=== PATIENT | female | born 1930 | race Caucasian/White ===

== ENCOUNTER → 2017-02-09 | Outpatient (CLI) | payer OTHER, MEDICARE ==
[~2017-02-09] MED LIST: ADULT LOW DOSE81 MG PO; ADVAIR HFA 1112 UNIT INH; ALBUTEROL2.5 MG/0.5 INH; BENICAR HCT 401 EACH PO; CENTRUM SILVER1 EAC4 PO; CITRACAL + BON1 EACH PO; CITRACAL + D C1 EACH PO; DILTIAZEM 24HR120 M1 PO; DILTIAZEM 24HR240 MG PO; DOCUSATE SODIU100 MG PO; EVISTA PO; FISH OIL SOFTG1 EACH PO; GLYCOLAX POWDER17 G1 PO; K-PHOS NEUTRAL250 MG PO; LEVAQUIN 500 M500 M2 PO; MUCINEX D TABL1 EAC1 PO; MULTIVITAMINS PO; NEBULIZER MISCELL; OMEGA-31000 MG PO; PREDNISONE 10 M10 MG PO; PROAIR HFA8.5 GM INH; SENNA-LAX8.6 MG PO; SPIRIVA INH; SYMBICORT160 MCG/4. INH; TEKTURNA300 MG PO; TORSEMIDE10 MG PO; TRAVATAN 0.004%5 ML OPHTHALMIC; VITAMIN B-12100 MC1 PO; VITAMIN D1000 UNI1 PO; VITAMIN D400 UNI1 PO
== END ==
LOC: RAD 10:45
DX: R06.02 Shortness of breath (principal)

== ENCOUNTER → 2017-07-08 | Outpatient (CLI) | payer OTHER, MEDICARE | LOC: RAD 10:45 | DX: Z12.31 Encounter for screening mammogram for malignant neoplasm of breast (principal) ==

== ENCOUNTER 2018-01-07 13:49 | Inpatient (IN) | payer OTHER, MEDICARE ==
[~2018-01-07] VITALS: Ht 152.4 cm; Wt 66.2 kg
--- NOTE | ~2018-01-07 | EKG ---
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 : 1930 Requested By: Orion Guzman Order Number: [id number] MD: Jah Jorgensen Measurements Intervals [place] Rate: 101 P: 41 LA: 157 QRS: 8 QRSD: 90 T: 6 QT: 303 QTc: 393 Interpretive Statements Sinus tachycardia Atrial premature complexe Compared to ECG 06/05/2016 22:20:22 Atrial premature complex(es) now present Sinus rhythm no longer present Electronically Signed On 01-08-2018 10:28:42 CDT by Jah Jorgensen [email or web address] <ELECTRONICALLY SIGNED> By: Jah Jorgensen MD 01/08/18 1028 1440 1440 Jah Jorgensen MD /LUISITO
--- NOTE | ~2018-01-07 | EKG ---
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 : 1930 Requested By: Andrae Herbert Order Number: [id number] MD: Lg Haines Measurements Intervals [place] Rate: 114 P: [place]: QRS: -21 QRSD: 86 T: -30 QT: 306 QTc: 422 Interpretive Statements Incomplete tracing Atrial fibrillation Borderline left axis deviation Low voltage, extremity leads Lead(s) II were not used for morphology analysis Compared to ECG 01/07/2018 14:40:44 Low QRS voltage now present Sinus tachycardia no longer present Electronically Signed On 01-11-2018 9:38:49 CDT by Lg Haines [email or web address] <ELECTRONICALLY SIGNED> By: Lg Haines MD, [facility] 01/11/18 0938 5 Lg Haines MD, [facility] /EPI
--- NOTE | ~2018-01-07 | EKG ---
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 01/11/18 0957 0755 0755 Lg aHines MD, [facility] /EPI
--- NOTE | ~2018-01-07 | HC ---
[facility] [place] [address] CONSULTATION Name: LUIS CELESTE Room #: [facility]- ADM IN M.R.#: [id number] Admission: 01/07/18 Attend Phys: Andrae Herbert MD Discharge: Date of : 32 Report #: [id number] THIS REPORT FOR: //name// CC: Jah Andrea MD DATE OF SERVICE: 01/10/2018 REFERRING PROVIDER: Andrae Herbert MD REASON FOR CONSULTATION: Wheezing and shortness of breath. HISTORY OF PRESENT ILLNESS: Our group was asked to evaluate the patient in consultation while hospitalized at [facility], a pleasant 87-year-old woman with a past history of COPD, although never a smoker, more of an asthmatic component, is to be on Stiolto inhaler with some reasonable control of symptoms, has done well in the last 4 months since her last office evaluation with no significant exacerbations; actually presented with nausea and abdominal discomfort, was found to have pyelonephritis with E. coli bacteremia, has been on Rocephin for this. However, after the last couple of days, has had increasing shortness of breath and wheezing, was noted to have some atrial fibrillation earlier today and is subsequently on diltiazem for control, also has been receiving aerosol treatments. She denies any significant cough or sputum production. As mentioned, wheezing and increased exertional dyspnea. Of note, the patient received several liters of fluid as part of her management. PAST MEDICAL HISTORY: 1. Chronic renal insufficiency. 2. COPD, most recent exacerbation in 2016. 3. Glaucoma. 4. Hypertension. OUTPATIENT MEDICATIONS: Include aspirin, vitamin D3, diltiazem, multivitamin, Stiolto, Travatan eyedrops, ProAir, aspirin. SOCIAL HISTORY: The patient is a never smoker. No significant alcohol consumption. Has one dog, no other animals at home. 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 FAMILY HISTORY: Noncontributory due to her advanced age. ALLERGIES: INCLUDE SULFA. REVIEW OF SYSTEMS: [facility] [address] [place] [address] CONSULTATION Name: LUIS CELESTE Room #: 360-P [facility] IN M.R.#: [id number] Admission: 01/07/18 Attend Phys: Andrae Herbert MD Discharge: Date of : 32 Report #: [id number] CONSTITUTIONAL: No fevers, some chills. ENT: No upper respiratory congestion, rhinorrhea or dysphagia. CARDIOVASCULAR: No chest pain or palpitations. GASTROINTESTINAL: History of large hiatal hernia. GENITOURINARY: No dysuria, no frequency. INTEGUMENT: Denies any new rash. MUSCULOSKELETAL: No joint pains or swelling. GENITOURINARY: Increased urinary frequency with recent UTI. PHYSICAL EXAMINATION: VITAL SIGNS: Currently afebrile, pulse 70s and regular, respiratory rate 20, blood pressure 146/89. GENERAL: Pleasant elderly woman in no distress. ENT: Clear oropharynx. NECK: Supple, no lymphadenopathy. LUNGS: Audible wheezes with some wheezing on exam. CARDIOVASCULAR: Heart regular. No murmurs appreciated. ABDOMEN: Soft, nontender, no masses. EXTREMITIES: 1+ edema. LABORATORY DATA: White blood cell count 7.5, hemoglobin 10, hematocrit 28, platelet count 248. No electrolytes today. No chest x-ray today. Chest x-ray on admission, 01/07, was clear with large hiatal hernia. IMPRESSION: 1. Chronic obstructive pulmonary disease with increasing symptoms, may be related to some mild pulmonary edema from large volume of fluid and atrial fibrillation or may be related to underlying severity of disease. 2. Atrial fibrillation. 3. Escherichia coli bacteremia. 4. Pyelonephritis. 5. History of hypertension. SUGGESTIONS: 1. Levalbuterol and Atrovent. 2. No systemic steroids at this time. 3. Check chest x-ray. 4. Consider diuresis. 5. Await echocardiogram. 6. Additional recommendations to follow. Thank you for requesting our suggestions. <ELECTRONICALLY SIGNED> By: Oscar Sarkar MD 01/11/18 1155 1803 14 Oscar Sarkar MD /nt
--- NOTE | ~2018-01-07 | HC ---
[facility] [place] [address] CONSULTATION Name: LUIS CELESTE Room #: 360- ADM IN M.R.#: [id number] Admission: 01/07/18 Attend Phys: Andrae Herbert MD Discharge: Date of : 32 Report #: [id number] THIS REPORT FOR: //name// CC: Andrae Herbert DATE OF SERVICE: 01/10/2018 HISTORY OF PRESENT ILLNESS: This is a pleasant 87-year-old female who was admitted several days ago with complaints of nausea, chills, and increased urine output. She was admitted for a pyelonephritis, cultures were positive for Gram-negative rods. She initially presented with sinus rhythm, but today she converted to atrial fibrillation. Appears to be asymptomatic. She does report having dyspnea for the past month or so, denies any history of chest pains. She does have a history of COPD. There is no history of lightheadedness, vomiting, or diarrhea. PAST MEDICAL HISTORY: COPD, pyelonephritis, hypertension, and anemia. ALLERGIES: Include SULFA. MEDICATIONS: At home include prednisone, aspirin 81 mg, diltiazem 240 mg daily, and Spiriva. SOCIAL HISTORY: Denies tobacco use. FAMILY HISTORY: Negative for premature CAD. REVIEW OF SYSTEMS: A full 10-point review of systems performed. Only the pertinent positives and negatives are described in the HPI. PHYSICAL EXAMINATION: VITAL SIGNS: Blood pressure is 149/62, heart rate is 110-150 beats per minute. GENERAL APPEARANCE: This is an elderly appearing female, in no acute respiratory distress. HEAD AND EYES: Normocephalic. Sclerae are anicteric. ENT: Oral mucosa moist. NECK: Supple. LUNGS: Bilateral expiratory wheezes. CARDIAC: Irregularly irregular, S1, S2 positive. ABDOMEN: Soft, nontender. EXTREMITIES: No major joint deformities. Trace edema. ECG reveals AFib with a rapid ventricular rate. ASSESSMENT AND PLAN: 1. Atrial fibrillation, new onset. May be contributing to her dyspnea. She is [facility] [address] [place] [address] [facility] #: [facility] IN M.R.#: [id number] Admission: 01/07/18 Attend Phys: Andrae Herbert MD Discharge: Date of : 32 Report #: [id number] currently on IV Cardizem for rate control. We will start amiodarone to maintain sinus rhythm. The CHADS score is 4; however, she has a history of anemia. Hold on anticoagulation at this time. 2. Dyspnea/history of chronic obstructive pulmonary disease, found to have expiratory wheezing. We will obtain a pulmonary evaluation. 3. Hypertension, mildly elevated, continue with IV Cardizem at this time. 4. Pyelonephritis, continue with antibiotics. 5. Anemia, hemoglobin is 8.7. Continue with aspirin for now. <ELECTRONICALLY SIGNED> By: Jah Jorgensen MD 01/11/18 0835 1342 1550 MD paul Olivia
--- NOTE | ~2018-01-07 | 2DMMODE ---
[facility] [address] [place] [address] 2 D/M-MODE ECHOCARDIOGRAM Name: LUIS CELESTE Room #: 360-P [facility] IN .R.#: [id number] Admission: 01/07/18 Attend Phys: Andrae Herbert, Discharge: Date of : 32 Date of Service: 01/10/18 1558 Report #: [id number] THIS REPORT FOR: //name// APPROVED REPORT Study performed: 01/10/2018 15:18:19 EXAM: Comprehensive 2D, Doppler, and color-flow Echocardiogram Patient Location: Echo lab Room #: 360 Status: routine BSA: 1.63 HR: 86 bpm BP: 149/62 mmHg Rhythm: NSR Other Information Study Quality: Good Indications Afib. Hx: COPD, HTN 2D Dimensions RVDd: 32.84 mm LVEF(%): 61.79 (>50%) IVSd: 9.88 (7-11mm) LVOT Diam: 19.57 (18-24mm) LVDd: 45.09 mm PWd: 10.23 (7-11mm) Ascending Ao: 25.82 (22-36mm) LVDs: 30.17 (25-40mm) Aortic Root: 31.51 mm Jc's LVEF: 61.79 % Volumes Left Atrial Volume (Systole) Single Plane 4CH: 63.27 mL Single Plane 2CH: 50.35 mL LA ESV Index: 39.00 mL/m2 Aortic Valve AoV Peak Jemal.: 1.53 m/s AO Peak Gr.: 9.34 mmHg LVOT Max P.76 mmHg LVOT Max V: 0.97 m/s LAZARA Vmax: 1.91 cm2 Mitral Valve E/A Ratio: 0.9 MV Decel. Time: 223.43 ms [facility] [place] [address] [place] [address] 2 D/M-MODE ECHOCARDIOGRAM Name: LUIS CELESTE Room #: [facility] IN M.R.#: [id number] Admission: 01/07/18 Attend Phys: Andrae Herbert, Discharge: Date of : 32 Date of Service: 01/10/18 1558 Report #: [id number] E Max Jemal.: 0.97 m/s MV A Jemal.: 1.04 m/s MV PHT: 64.80 ms IVRT: 83.04 ms Pulmonary Valve PV Peak Jemal.: 1.31 m/s PV Peak Gr.: 6.84 mmHg Pulmonary Vein P Vein S: 1.01 m/s P Vein D: 0.54 m/s P Vein S/D Ratio: 1.87 Tricuspid Valve TR Peak Jemal.: 3.01 m/s RAP Estimate: 5.00 mmHg TR Peak Gr.: 36.17 mmHg PA Pressure: 41.00 mmHg Left Ventricle The left ventricle is normal size. There is normal LV segmental wall motion. There is normal left ventricular wall thickness. Left ventricular systolic function is normal. LVEF is 55-60%. Mild diastolic dysfunction is present (impaired relaxation pattern). Right Ventricle The right ventricle is normal size. The right ventricular systolic function is normal. Atria Left atrium is mild to moderately dilated. The right atrium size is normal. Aortic Valve Aortic valve leaflets are mildly sclerotic No aortic regurgitation is present. There is no aortic valvular stenosis. Mitral Valve Mild-moderate mitral annular calcification. Moderate mitral regurgitation. No evidence of mitral valve stenosis. Tricuspid Valve The tricuspid valve is normal in structure. Mild tricuspid regurgitation. Estimated PAP is 40-45mmHg. Pulmonic Valve [address] [address] 2 D/M-MODE ECHOCARDIOGRAM Name: [place] Room #: 360-P [facility] IN M.R.#: [id number] Admission: 01/07/18 Attend Phys: Andrae Herbert, Discharge: Date of : 32 Date of Service: 01/10/18 1558 Report #: [id number] The pulmonary valve is normal in structure. Mild to moderate pulmonic regurgitation. Great Vessels The aortic root is normal in size. The ascending aorta is normal in size. IVC is normal in size and collapses >50% with inspiration. Pericardium Trace-small anterior pericardial effusion <Conclusion> Left ventricular systolic function is normal. There is normal LV segmental wall motion. LVEF is 55-60%. Mild diastolic dysfunction Left atrium is mild to moderately dilated. Aortic valve leaflets are mildly sclerotic. No aortic regurgitation or stenosis. Mild-moderate mitral annular calcification. Moderate mitral regurgitation. Mild tricuspid regurgitation. Estimated pulmonary artery pressure of 40-45mmHg. Trace-small anterior pericardial effusion <ELECTRONICALLY SIGNED> By: Lg Haines MD, [facility] 01/10/18 1558 1558 1558 Lg Haines MD, [facility]ACC /INF
[2018-01-07 13:58] VITALS: BP 157/81
[2018-01-07 14:28] LABS: HEMATOCRIT 32.2 % (37.0-47.0); MCH 30.9 pg (26.0-34.0); MCHC 34.2 g/dL (28.0-37.0); MCV 90.1 fL (80.0-100.0); PLATELET COUNT 238 thou/uL (150-400); RBC 3.57 mil/uL (4.20-5.00); RDW 14.7 % (10.5-14.5); WBC 10.6 thou/uL (4.0-11.0)
[2018-01-07 14:37] LABS: ANION GAP 9 mmol/L (7-16); BUN 30 mg/dL (7-18); CALCIUM 9.3 mg/dL (8.5-10.1); CHLORIDE 99 mmol/L (98-107); CO2 24 mmol/L (21-32); CREATININE 1.5 mg/dL (0.6-1.0); GLUCOSE 111 mg/dL (74-106); POTASSIUM 3.8 mmol/L (3.5-5.1); SODIUM 132 mmol/L (136-145)
[2018-01-07 14:45] LABS: ALBUMIN 2.9 g/dL (3.4-5.0); LIPASE 46 U/L (73-393); SGOT 29 U/L (15-37); SGPT 24 U/L (30-65); TOTAL BILIRUBIN 0.4 mg/dL (<0.1-1.0); TOTAL PROTEIN 7.1 g/dL (6.4-8.2); TROPONIN-I < 0.04 ng/mL (<0.06)
[2018-01-07 14:50] LABS: URINE BILIRUBIN NEGATIVE (Negative); URINE BLOOD 2+ (Negative); URINE CLARITY CLEAR; URINE COLOR YELLOW; URINE GLUCOSE-RANDOM* NEGATIVE (Negative); URINE KETONES TRACE (Negative); URINE LEUKOCYTES 1+ (Negative); URINE NITRITE POSITIVE (Negative); URINE PROTEIN (DIPSTICK) 2+ (Negative); URINE SPECIFIC GRAVITY 1.015 (1.005-1.035); URINE UROBILINOGEN 0.2 E.U./dl (0.2-1.0)
[2018-01-07 14:54] LABS: ABSOLUTE NEUTROPHILS 8.3 thou/uL (1.4-8.2)
[2018-01-07 15:10] LABS: CASTS None Seen /LPF (None Seen); CRYSTALS None Seen /LPF (None Seen); SQUAMOUS 0-3 Few /LPF (0-3); URINE RBC 0-2 Rare /HPF (0-2)
[2018-01-07 15:11] LABS: BACTERIA >30 Many /HPF (None Seen)
[2018-01-07 17:14] VITALS: BP 157/81
[2018-01-07 18:04] VITALS: BP 146/72
[2018-01-07 18:43] VITALS: BP 155/59
[2018-01-07 19:50] VITALS: BP 161/73
[2018-01-08 00:10] VITALS: BP 143/66
[2018-01-08 04:20] VITALS: BP 142/59
[2018-01-08 05:00] LABS: CALCIUM 8.5 mg/dL (8.5-10.1); CREATININE 1.3 mg/dL (0.6-1.0); POTASSIUM 3.6 mmol/L (3.5-5.1)
[2018-01-08 07:42] VITALS: BP 129/61
[2018-01-08 08:23] LABS: HEMATOCRIT 28.5 % (37.0-47.0); HEMOGLOBIN 9.8 gm/dL (12.0-15.0); MCH 31.4 pg (26.0-34.0); MCHC 34.4 g/dL (28.0-37.0); MCV 91.3 fL (80.0-100.0); RBC 3.12 mil/uL (4.20-5.00); RDW 14.7 % (10.5-14.5); WBC 9.8 thou/uL (4.0-11.0)
[2018-01-08 11:49] VITALS: BP 127/59
[2018-01-08 15:14] VITALS: BP 125/55
[2018-01-08 19:11] VITALS: BP 115/54
[2018-01-09 03:59] VITALS: BP 128/53
[2018-01-09 06:31] LABS: HEMOGLOBIN 8.7 gm/dL (12.0-15.0); MCH 31.3 pg (26.0-34.0); MCHC 34.7 g/dL (28.0-37.0); RBC 2.78 mil/uL (4.20-5.00); RDW 14.9 % (10.5-14.5); WBC 7.1 thou/uL (4.0-11.0)
[2018-01-09 07:21] VITALS: BP 135/56
[2018-01-09 09:17] LABS: CALCIUM 8.5 mg/dL (8.5-10.1); CREATININE 1.4 mg/dL (0.6-1.0); POTASSIUM 3.7 mmol/L (3.5-5.1)
[2018-01-09 11:16] VITALS: BP 123/81
[2018-01-09 15:35] VITALS: BP 132/66
[2018-01-09 19:27] VITALS: BP 138/72
[2018-01-10 03:43] VITALS: BP 149/62
[2018-01-10 05:46] LABS: HEMATOCRIT 28.1 % (37.0-47.0); HEMOGLOBIN 9.6 gm/dL (12.0-15.0); MCH 30.7 pg (26.0-34.0); MCV 90.3 fL (80.0-100.0); RBC 3.11 mil/uL (4.20-5.00); RDW 15.2 % (10.5-14.5); WBC 7.5 thou/uL (4.0-11.0)
[2018-01-10 19:40] VITALS: BP 165/81
[2018-01-11 05:07] LABS: HEMATOCRIT 26.7 % (37.0-47.0); MCH 30.7 pg (26.0-34.0); MCHC 33.7 g/dL (28.0-37.0); MCV 91.2 fL (80.0-100.0); RBC 2.93 mil/uL (4.20-5.00)
[2018-01-11 05:33] VITALS: BP 154/85
[2018-01-11 07:30] VITALS: BP 152/22
[2018-01-11 11:10] VITALS: BP 137/86
[2018-01-11 15:15] VITALS: BP 168/79
[2018-01-11 19:07] VITALS: BP 147/80
[2018-01-12 03:29] VITALS: BP 143/79
[2018-01-12 07:11] LABS: CALCIUM 9.1 mg/dL (8.5-10.1); CREATININE 1.1 mg/dL (0.6-1.0); POTASSIUM 3.1 mmol/L (3.5-5.1)
[2018-01-12 07:45] VITALS: BP 167/85
[2018-01-12] MEDS ORDERED: PACERONE 200 M200 M1 PO (12:51)
[2018-01-12] MEDS ORDERED: CEFDINIR300 MG PO (12:52)
[2018-01-12 13:11] VITALS: BP 167/85
== END 2018-01-12 13:40 | disposition home or self-care (01) | DRG 871 ==
LOC: ER 13:49 → EROBS 15:05 → 3W 15:05 → ENTRNSPT 01-12 13:20 → EDTRNSPTSTS 01-12 13:25 → 3W 01-12 13:40
PROVIDERS: Family Medicine; Internal Medicine; Internal Medicine Cardiovascular Disease; Physician Assistant
DX: A41.9 Sepsis, unspecified organism (principal); E43 Unspecified severe protein-calorie malnutrition; N17.9 Acute kidney failure, unspecified; N12 Tubulo-interstitial nephritis, not specified as acute or chronic; J44.9 Chronic obstructive pulmonary disease, unspecified; E86.0 Dehydration; I48.91 Unspecified atrial fibrillation; D64.9 Anemia, unspecified; B96.20 Unspecified Escherichia coli [E. coli] as the cause of diseases classified elsewhere; I12.9 Hypertensive chronic kidney disease with stage 1 through stage 4 chronic kidney disease, or unspecified chronic kidney disease; H40.9 Unspecified glaucoma; N18.3 Chronic kidney disease, stage 3 (moderate); E83.42 Hypomagnesemia; R65.20 Severe sepsis without septic shock; K44.9 Diaphragmatic hernia without obstruction or gangrene; Z88.2 Allergy status to sulfonamides; Z98.49 Cataract extraction status, unspecified eye; Z89.421 Acquired absence of other right toe(s); Z79.82 Long term (current) use of aspirin; Z79.899 Other long term (current) drug therapy
CPT/HCPCS: 10879

== ENCOUNTER → 2018-01-17 | Outpatient (CLI) | payer OTHER, MEDICARE ==
[~2018-01-17] MED LIST changes: +CEFDINIR300 MG PO; +PACERONE 200 M200 M1 PO
== END ==
LOC: ULTRA 10:12
DX: M79.605 Pain in left leg (principal); M79.89 Other specified soft tissue disorders; R22.41 Localized swelling, mass and lump, right lower limb; J44.9 Chronic obstructive pulmonary disease, unspecified

== ENCOUNTER → 2019-01-16 | Outpatient (CLI) | payer OTHER, MEDICARE | LOC: NUC 10:28 | DX: S92.345A Nondisplaced fracture of fourth metatarsal bone, left foot, initial encounter for closed fracture (principal); M85.851 Other specified disorders of bone density and structure, right thigh; M85.852 Other specified disorders of bone density and structure, left thigh; I11.9 Hypertensive heart disease without heart failure; I48.91 Unspecified atrial fibrillation; Z78.0 Asymptomatic menopausal state; X58.XXXA Exposure to other specified factors, initial encounter; Y93.89 Activity, other specified; Y92.89 Other specified places as the place of occurrence of the external cause; Y99.8 Other external cause status ==

== ENCOUNTER 2019-01-22 17:57 | Inpatient (IN) | payer OTHER, MEDICARE ==
[~2019-01-22] VITALS: Ht 152.4 cm; Wt 54.9 kg
--- NOTE | ~2019-01-22 | HC ---
[facility] [place] [address] CONSULTATION Name: LUIS CELESTE Room #: 450-P ADM IN M.R.#: [id number] Admission: 01/22/19 ������������������ Attend Phys: Andrae Herbert MD Discharge: ������������������ Date of : 32 Report #: [id number] THIS REPORT FOR: //name// CC: [facility] DATE OF SERVICE: 01/23/2019 ORTHOPEDIC CONSULTATION REASON FOR CONSULTATION: Right hip fracture. HISTORY OF PRESENT ILLNESS: The patient is an 88-year-old female who apparently was in some type of boot for a foot fracture. She tripped and fell yesterday sustaining a right hip fracture. She reportedly was transferred by ambulance to [facility], diagnosed with a hip fracture and admitted to the hospital. She denies any other pain. Denied loss of consciousness. REVIEW OF SYSTEMS: MUSCULOSKELETAL: See HPI. Denies other injury except for mentioned in the HPI. NEUROLOGIC: Denies numbness or tingling. PAST MEDICAL HISTORY: Significant for hypertension, COPD and atrial fibrillation. REPORTED HOME MEDICATIONS: Include amiodarone, cefdinir, albuterol, calcium citrate, cholecalciferol, tiotropium, travoprost, guaifenesin, diltiazem, fish oil, GlycoLax powder. ALLERGIES: SULFA. SOCIAL HISTORY: Lives at home with her , uses a cane intermittently. Denies smoking or drinking alcohol. 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 LABORATORY DATA: Done on 01/22/2019 shows white blood cell count 12.1, hemoglobin 11.2, hematocrit 32.8, platelet count 282. Chemistry is grossly normal with a slight elevation in her creatinine of 1.5. PHYSICAL EXAMINATION: GENERAL: The patient is alert and oriented. She interacts appropriately. She is a well-developed, well-nourished female, in no acute distress. She converses well. VITAL SIGNS: Most recent vital signs show temperature of 36.3, heart rate 71, [facility] [address] [place] [address] CONSULTATION Name: LUIS CELESTE Room #: [facility]- ADM IN M.R.#: [id number] Admission: 01/22/19 ������������������ Attend Phys: Andrae Herbert MD Discharge: ������������������ Date of : 32 Report #: [id number] respirations 17, blood pressure 151/68, pulse oximetry is 91%, unsure of the flow rate as it is not documented. EXTREMITIES: Examination of her bilateral upper extremities, the skin is clean, dry and intact. She has brisk capillary refill. She has some mild diffuse arthritic changes to her digits. Gross motor and sensory intact. She has no tenderness to palpation of the bilateral sternum and clavicles, shoulders, arms, elbows, forearms, wrists and hands. She moves all these joints without pain and within a functional range. Right lower extremity exam, the right lower extremity is internally rotated and shortened. She has 2+ dorsalis pedis pulse. EHL, FHL, dorsiflexion and plantar flexion are intact. There is no tenderness to palpation to the distal thigh, knee, leg, ankle or foot. There is no pain with range of motion of the right knee, ankle or foot. There is mild pain with attempted range of motion of the right hip. Left lower extremity exam: Skin is clean, dry and intact. Brisk capillary refill. Motor and sensory are grossly intact. 2+ dorsalis pedis pulse. No tenderness to palpation throughout the entire left lower extremity and no pain with range of motion of left hip, knee, ankle or foot. RADIOGRAPHS: AP pelvis and AP and lateral of the right hip show a displaced subcapital femoral neck fracture. IMPRESSION AND PLAN: Right displaced subcapital femoral neck fracture. We discussed the risks, benefits, alternatives and complications of the procedure including, but not limited to, infection, damage to vessels or nerves, hardware problems, decreased ambulatory level, blood clots. We discussed the rationale for the surgery, which would be to allow her to get out of bed to be upright to ambulate. Questions were encouraged and answered to the best of my ability. I have discussed this with my partner, Dr. Dat Johnson who most likely will be performing the surgery later this morning if the patient is medically stable. ��������������������������������������������� ���������������������������������������� By: ��������������������������������������������� 0704 0111 Annie Schaefer MD /nt
[2019-01-22 18:01] VITALS: BP 196/173
[2019-01-22 18:36] LABS: ABSOLUTE NEUTROPHILS 10.4 thou/uL (1.4-8.2); BASOPHILS 0.4 % (0.0-2.0); EOSINOPHILS 0.5 % (0.0-3.0); HEMATOCRIT 32.8 % (37.0-47.0); HEMOGLOBIN 11.2 gm/dL (12.0-15.0); LYMPHOCYTES 8.7 % (24.0-44.0); MCH 30.8 pg (26.0-34.0); MCHC 34.1 g/dL (28.0-37.0); MCV 90.3 fL (80.0-100.0); MONOCYTES 4.4 % (1.0-8.0); PLATELET COUNT 282 thou/uL (150-400); RBC 3.63 mil/uL (4.20-5.00); RDW 15.8 % (10.5-14.5); WBC 12.1 thou/uL (4.0-11.0)
[2019-01-22 18:50] LABS: CALCIUM 9.6 mg/dL (8.5-10.1); CREATININE 1.5 mg/dL (0.6-1.0); POTASSIUM 3.8 mmol/L (3.5-5.1)
[2019-01-22 18:56] LABS: TOTAL BILIRUBIN 0.5 mg/dL (<0.1-1.0)
[2019-01-22 19:59] VITALS: BP 172/80
[2019-01-22 20:34] VITALS: BP 166/87
[2019-01-22 21:04] VITALS: BP 169/74
[2019-01-22 23:53] VITALS: BP 148/63
[2019-01-23] VITALS (11 sets, daily range): BP systolic 121–170; BP diastolic 43–68
--- NOTE | 2019-01-23 04:31 | NUR ---
PATIENT ARRIVED ON THE FLOOR ON 01/22/19 AT 2100hrs. UPON ARRIVAL, PATIENT IS ALERT AND ORIENTED X 4. PATIENT WAS ORIENTED TO THE ROOM AND SIGNED THE CONSENTS. PATENT WAS COMPLAINING ABOUT PAIN ON HER RIGHT HIP WHILE MOVING BUT WAS COMFORTABLE WHILE IMMOBILE. THE NIGHT PROGRESSED, A ARCHER WAS INSERTED PER DR ORDER. PATIENT WAS ABLE TO GET COMFORTABLE AND SLEPT PART OF THE NIGHT. HIGH FALL PRECAUTION IN PLACE. PATIENT WAS PLACED NPO AFTER MIDNIGHT DUE TO POSSIBLE Sx.
--- NOTE | 2019-01-23 07:27 | EKG ---
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 : 1930 Requested By: Orion Guzman Order Number: [id number] MD: Lg Haines Measurements Intervals [place] Rate: 78 P: 0 DC: QRS: 80 QRSD: 107 T: 95 QT: 395 QTc: 450 Interpretive Statements Sinus rhythm Baseline wander No previous ECG available for comparison Electronically Signed On 01-23-2019 7:27:35 CDT by Lg Haines [email or web address] ��������������������������������������������� <ELECTRONICALLY SIGNED> ���������������������������������������� By: Lg Haines MD, [facility] ��������������������������������������������� 01/23/19 0727 1825 1825 Lg Haines MD, [facility] /EPI
[2019-01-23 10:10] LABS: HEMATOCRIT 32.2 % (37.0-47.0); HEMOGLOBIN 11.1 gm/dL (12.0-15.0); MCH 31.7 pg (26.0-34.0); MCHC 34.4 g/dL (28.0-37.0); MCV 91.9 fL (80.0-100.0); RBC 3.5 mil/uL (4.20-5.00); RDW 16.1 % (10.5-14.5); WBC 11.2 thou/uL (4.0-11.0)
--- NOTE | 2019-01-23 15:23 | NUR ---
PT ADMITTED RELATED TO FALL, FX NECK AND FEMUR. CM REVIEWED CHART AND SPOKE WITH CARE TEAM. CM MET WITH PT AT BEDSIDE THIS DAY. PT IS A&O X4. CM ROLE INTRODUCED. PT INDICATED SHE LIVES IN A HOUSE WITH HER SPOUSE WITH 5 STEPS TO ENTER THROUGH THE GARAGE. PT INDICATED NO STEPS INSIDE. 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 PT INDICTED SHE HAS ALL NEEDS ON 1 LEVEL UPON DC. PT INDICATED NO HH HX. PT INDICATED SHE ANTICPATES RETURNING HOME ONCE MEDICALLY STABLE. PT INDICATED SHE WILL AWAIT PT AND OT RECS TO SSE WHAT THEY RECOMEND FOR POST ACUTE CARE. PT HAD SURGERY TODAY. CM TO FOLLOW INDICATED WITH DC PLANNING.
--- NOTE | 2019-01-23 17:57 | NUR ---
ASSUMED CARE 0700. LEFT FOR SURGERY THIS MORNING FOR RIGHT HIP REPAIR, VSS, LUNGS CLEAR DIMINISHED. PAIN MANAGED WITH MEDICATIONS. ARCHER PATENT, RETURNED POST-OP WITH BREANNE DRESSING C/D/I, ICE IN PLACE. DROWSY BUT AWAKENS EASILY. DENIES PAIN AT TIME OF ARRIVAL. CURRENTLY TREATED RIGHT HIP PAIN WITH MEDICAION. ORDERS ACKNOWLDGED. FLUIDS AND FIRST DOSE OF ANTIBIOTICS CURRENTLY RUNNING. TOLERATED CLD AND ADVANCE TO FULL LIQUIDS FOR DINNER. CALL LIGHT IN REACH. FULL FALL PRECAUTIONS IN PLACE. UPDATED OF PT CONDITIONS. CONTINUE TO MONITOR
[2019-01-24 04:11] VITALS: BP 131/49
[2019-01-24 05:41] LABS: HEMATOCRIT 21.3 % (37.0-47.0); MCH 31.8 pg (26.0-34.0); MCHC 34.5 g/dL (28.0-37.0); MCV 92.1 fL (80.0-100.0); RBC 2.31 mil/uL (4.20-5.00); RDW 15.6 % (10.5-14.5); WBC 7.4 thou/uL (4.0-11.0)
[2019-01-24 05:56] LABS: HEMOGLOBIN 7.3 gm/dL (12.0-15.0)
--- NOTE | 2019-01-24 05:57 | NUR ---
POST OP DAY 1 FOR PATIENT AND PATIENT. UPON INITIAL INTERACTION AND ASSESSMENT, PATIENT WAS ALERT BUT EASILY CONFUSED. THE NIGHT PROGRESSED, PATENT WAS MORE ORIENTED AND CONFUSION SUBSIDED. HEMOVAC IN PLACE AND HAD 30CC OF BLOODY DRAINAGE THIS SHIFT. PATIENT REPORTED PAIN ONLY WHEN WHEN MOVING. PATIENT DID NOT REQUEST ANY PAIN MEDS THIS SHIFT. PATIENT WAS COMFORTABLE AND SLEPT PART OF THE NIGHT. PATIENT IS NOW AOX4 AND IS PROGRESSING TOWARDS DC GOALS.
--- NOTE | 2019-01-24 08:09 | O ---
[facility] [place] [address] OPERATIVE REPORT Name: LUIS CELESTE Room #: 450-P [facility] IN M.R.#: [id number] Admission: 01/22/19 ������������������ Attend Phys: Andrae Herbert MD Discharge: ������������������ Date of : 32 Report #: [id number] THIS REPORT FOR: //name// CC: Andrae Valencia [facility] DATE OF SERVICE: 01/23/2019 PREOPERATIVE DIAGNOSIS: Displaced unstable right femoral neck fracture. POSTOPERATIVE DIAGNOSIS: Displaced unstable right femoral neck fracture. PROCEDURE: Right proximal femoral hemiarthroplasty. SURGEON: Dat Johnson MD INDICATIONS: This frail, but still active and independent 88-year-old female fell at home injuring the right hip. X-rays confirmed a displaced femoral neck fracture. We discussed treatment options and elected to go ahead with cemented hemiarthroplasty. DESCRIPTION OF PROCEDURE: The patient was taken to the operating room where she was placed under general anesthesia. Prophylactic intravenous antibiotics were administered. She was turned to the left lateral decubitus position. The right hip and thigh were meticulously prepped and draped. A slightly curving posterolateral skin incision was made centered over the greater trochanter. This was carried through fascia and gluteus to expose the posterior hip joint. The short external rotators and capsule were taken down and tagged with several #1 Tevdek sutures. The femoral neck was found to be fractured and unstable. The head was removed and measured at 43 mm in diameter. The canal was opened with reamers and hand broaches. The Vasquez and Nephew hip system was utilized. A size 12 cemented stem seemed to fit most appropriately. A trial reduction was performed and a +0 neck length combined with a 43 mm head resulted in satisfactory alignment, range of motion and stability. The trial components were removed. A cement restrictor was placed in the canal. The canal was thoroughly irrigated and dried. Methyl methacrylate cement was mixed and injected into the canal. The Vasquez and Nephew size 12 cement stem was then inserted, placing this in about 20 degrees of anteversion. Excess cement was removed around its margin. A 43 mm hemiarthroplasty head with a +0 mm neck length sleeve were then inserted. This was carefully impacted on to the Fleming taper. The hip was reduced. Alignment, range of motion, stability and leg length were assessed and felt to be satisfactory. A single Hemovac was left in the wound exiting through a separate stab incision. The capsule and short external rotators were repaired back to bone using the #1 Tevdek sutures passed through drill holes in the bone. The fascia was closed with multiple #[address] [address] OPERATIVE REPORT Name: LUIS CELESTE Room #: 450-P [facility] IN M.R.#: [id number] Admission: 01/22/19 ������������������ Attend Phys: Andrae Herbert MD Discharge: ������������������ Date of : 32 Report #: [id number] sutures. The subcutaneous tissues were closed with 0 Monocryl. The skin was closed with skin felix. A sterile dressing was applied. The patient was awakened and returned to the recovery room in good condition. ��������������������������������������������� <ELECTRONICALLY SIGNED> ���������������������������������������� By: Dat Johnson MD ��������������������������������������������� 01/24/19 0809 1058 1213 Dat Johnson MD /nt
[2019-01-24 08:13] VITALS: BP 124/59
[2019-01-24 11:07] VITALS: BP 118/50
--- NOTE | 2019-01-24 11:42 | NUR ---
REC PT FROM FLOOR, VIA W/C HONORING HIP PRECAUTIONS AND WBAT, PT CANNOT MOVE WELL AT THIS TIME, WAS INDEPENDENT PRIOR. A&0X4, SLIGHTLY NENANA, NEEDS US TO GO OVER HIP PRECAUTIONS FREQUENTLY SHE SAID IT OVERWHELMS HER REMEMBERING EVERYTHING. SHE ALSO STATED BONY W/PT WOULD ALSO REPEAT HE WORKS WITH HER. RA SATTING 80-83%, BACK ON 2L FOR NOW, WILL CONTINUE TO MONITOR. RECEIVED A VISITOR AFTER ARRIVAL TO FLOOR
[2019-01-24 19:30] VITALS: BP 118/50
[2019-01-25 06:06] LABS: MCH 31.9 pg (26.0-34.0); MCHC 34.7 g/dL (28.0-37.0); RBC 2.01 mil/uL (4.20-5.00); WBC 6.4 thou/uL (4.0-11.0)
[2019-01-25 06:09] LABS: HEMATOCRIT 18.5 % (37.0-47.0); HEMOGLOBIN 6.4 gm/dL (12.0-15.0)
--- NOTE | 2019-01-25 06:49 | NUR ---
ASSUMED CARE AT 1900, ASSESSMENT COMPLETED. PT REPORTS MODERATE PAIN, 5/10 IN RIGHT HIP AT FRACTURE SITE. GIVEN PAIN MEDS x2 OVERNIGHT. DENIES NAUSEA OR SOB; ON 2L NC, SATTING WELL. REPORTS FEELING TIRED. LOW URINE OUTPUT OVERNIGHT, ONLY 250 ML IN CATHETER. CRITICAL LOW HGB AND HCT THIS AM, NOTIFIED DR. ALCOCER; ORDERED ONE UNIT TO BE TRANSFUSED. LEFT ARCHER IN PLACE FOR ACCURATE I&O WHILE RECEIVING BLOOD. NO OTHER CONCERNS, WILL CONTINUE TO MONITOR.
[2019-01-25 07:23] VITALS: BP 142/52
--- NOTE | 2019-01-25 09:55 | NUR ---
ASSUMED CARE OF PATIENT THIS MORNING. PATIENT IS A&OX4 WITH SOME FORGETFULNESS. SHE WILL RECEIVE ONE UNIT OF BLOOD THIS MORNING. HGB 6.4 AND HCT 18.5. SHE CURRENTLY HAS A ARCHER, WHICH WILL POSSIBLY BE DC'D LATER TODAY. SHE HAD A RIGHT FEMORAL FERMIN-ARTHROPLASTY ON 01/23/19, WHICH CURRENTLY HAS A BREANNE DRESSING AND HEMOVAC. SHE IS UP WITH [facility] ASSIST. SHE IS ON 2L OF OXYGEN. SHE REFUSED HER STOOL SOFTENER AND MIRALAX THIS MORNING. SHE IS CURRENTLY LYING IN BED WITH CALL LIGHT WITHIN REACH. SHE HAS BEEN CALLING OUT APPROPRIATELY FOR ASSISTANCE.
--- NOTE | 2019-01-25 12:02 | NUR ---
SW reviewed chart and spoke with nursing. [facility] from . Pt's hgb was low today. Pt have blood transfusion. Pt is POD #2 for SANGEETA. SW met with pt at bedside to discuss discharge plan. Therapy is recommending post-acute placement. SW met with pt at bedside to discuss discharge plan. SW provided list of SNFs for review. Pt is agreeable with plan for placement. Pt to review list with her family. SW is following to assist as needed with discharge planning.
[2019-01-25 13:43] VITALS: BP 132/54; BP 134/53
--- NOTE | 2019-01-25 19:33 | NUR ---
I AGREE WITH NURSING ASSESSMENT DONE SCOTT/HEATHER.
[2019-01-25 20:35] LABS: HEMATOCRIT 23.1 % (37.0-47.0); HEMOGLOBIN 8.2 gm/dL (12.0-15.0)
[2019-01-25 21:32] VITALS: BP 120/56
--- NOTE | 2019-01-26 05:42 | NUR ---
PATIENT ALERT AND ORIENTED X4, FORGETFUL. BREANNE DRESSING ON R HIP D/I. HEMAVAC IN PLACE. ARCHER PATENT YELLOW URINE. DENIES PAIN. SLEPT MOST OF THE NIGHT.
[2019-01-26 07:53] VITALS: BP 135/52
[2019-01-26 09:52] VITALS: BP 135/52
--- NOTE | 2019-01-26 10:30 | NUR ---
PATIENT IS A&OX4. SHE HAS A ARCHER. PATIENT ONLY COMPLAINS OF PAIN WITH MOVEMENT, RATES PAIN 4/10. SHE HAS A BREANNE DRESSING ON HE RIGHT HIP, POST OP DAY #3. SHE ALSO HAS A HEMOVAC WITH A SMALL AMOUNT OF OUTPUT. SHE WEARS 2L OF O2. PATIENT SHE REFUSED HER MIRALAX AND STOOL SOFTENER THIS MORNING. SHE TOLERATED THE REST OF HER MORNING MEDS. SHE IS CURRENTLY LYING IN BED WITH CALL LIGHT WITHIN REACH. SHE CALLS OUT APPROPRIATELY FOR ASSISTANCE.
--- NOTE | 2019-01-26 10:45 | NUR ---
DISCHARGE PLANNING. PATIENT IS MEDICALLY READY FOR DISCHARGE TODAY. REQUEST REFERRAL SENT TO [facility]. CALL PLACED TO RICK, [facility], TO NOTIFY OF REFERRAL. REFERRAL FAXED TO HER. RICK, CURRENTLY ON UNIT VISITING WITH PATIENT. ACCEPTING OF PATIENT AT DISCHARGE. ATTENDING PHYSICIAN NOTIFIED AND IS COMPLETING ORDERS. CHART COPY TO BE COMPLETED PER FAMILY PRESERVATION WORKER. FAMILY NOTIFIED. TRANSPORTATION SET UP FOR 1400 HOURS PER [facility] , PATIENT AGREEABLE. UNIT RN NOTIFIED AND CONTACT NUMBER FOR REPORT PROVIDED. UNIT CM/SW AWARE.
--- NOTE | 2019-01-26 10:52 | NUR ---
DISCHARGE NOTE: ROCCO reviewed chart and spoke with nursing and attending physician. Pt is medically stable for discharge today for post-acute. Pt requests referral to be sent to [facility] for review. [facility] can accept pt today. Wheelchair van transportation scheduled for 1400 this afternoon. Pt is aware and agreeable with discharge plan. Discharge orders not finalized yet. Will fax to [facility] when available. ROCCO is following to assist as needed with dishcarge planning.
--- NOTE | 2019-01-26 16:43 | NUR ---
PATIENT DISCHARGED TO [facility]. IV REMOVED ALONG WITH HEMOVAC AND ARCHER. PATIENT DRESSED IN HER OWN CLOTHING. DISCHARGE PAPERWORK GIVEN TO TRANSPORTER.
--- NOTE | 2019-01-26 17:46 | NUR ---
TRIED TO CALL REPORT TO THE FACILITY A FEW TIMES BEFORE THE PATIENT WAS DISCHARGED AND A MESSAGE WAS LEFT. FACILITY RETURNED THE CALL AND WAS UNAVAILABLE AT THE TIME TO GET TO THE PHONE AND RETURNED THE CALL AND I LEFT ANOTHER MESSAGE, AND NO CALL WAS EVER RETURENED.
== END 2019-01-26 16:43 | DRG 470 ==
LOC: ER → EROBS 19:02 → 4W 19:02 → SICU 01-24 10:52
PROVIDERS: Orthopaedic Surgery; Physician Assistant; ADMIT Family Medicine
PROC: 0SRR019 Replacement of Right Hip Joint, Femoral Surface with Metal Synthetic Substitute, Cemented, Open Approach (ICD-10-PCS; principal; 2019-01-23)
PROC: 30233N1 Transfusion of Nonautologous Red Blood Cells into Peripheral Vein, Percutaneous Approach (ICD-10-PCS; 2019-01-25)
DX: S72.001A Fracture of unspecified part of neck of right femur, initial encounter for closed fracture (principal); N17.9 Acute kidney failure, unspecified; J44.9 Chronic obstructive pulmonary disease, unspecified; I12.9 Hypertensive chronic kidney disease with stage 1 through stage 4 chronic kidney disease, or unspecified chronic kidney disease; D64.9 Anemia, unspecified; I48.91 Unspecified atrial fibrillation; S72.011A Unspecified intracapsular fracture of right femur, initial encounter for closed fracture; N18.9 Chronic kidney disease, unspecified; Z88.2 Allergy status to sulfonamides; Z79.82 Long term (current) use of aspirin; Z79.899 Other long term (current) drug therapy; W18.39XA Other fall on same level, initial encounter; Y93.89 Activity, other specified; Y92.098 Other place in other non-institutional residence as the place of occurrence of the external cause; Y99.8 Other external cause status
CPT/HCPCS: 10040; 15002; 50010; 50101; 50382; 50414; 51057; 51130; 51225; 51412; 53000; 53369; 56521; 56525; 56527; 62110; 62900; 70005

== ENCOUNTER 2019-03-10 08:48 | Emergency (ER) | payer OTHER, MEDICARE ==
[~2019-03-10] VITALS: Ht 152.4 cm; Wt 61.8 kg
[2019-03-10 08:49] VITALS: BP 181/80
[2019-03-10] MEDS ORDERED: PREDNISONE 20 M20 MG PO ×2 (09:04)
[2019-03-10 09:40] LABS: ABSOLUTE NEUTROPHILS 5.9 thou/uL (1.4-8.2); BASOPHILS 0.7 % (0.0-2.0); HEMATOCRIT 30.4 % (37.0-47.0); HEMOGLOBIN 10.5 gm/dL (12.0-15.0); LYMPHOCYTES 9.8 % (24.0-44.0); MCH 32.8 pg (26.0-34.0); MCHC 34.7 g/dL (28.0-37.0); MCV 94.6 fL (80.0-100.0); MONOCYTES 5.1 % (1.0-8.0); PLATELET COUNT 327 thou/uL (150-400); POLYS 84.4 % (36.0-66.0); RBC 3.21 mil/uL (4.20-5.00); RDW 18.1 % (10.5-14.5)
[2019-03-10 09:54] LABS: CALCIUM 9.3 mg/dL (8.5-10.1); CREATININE 1.6 mg/dL (0.6-1.0); POTASSIUM 3.7 mmol/L (3.5-5.1)
[2019-03-10 09:59] LABS: MAGNESIUM 2.1 mg/dL (1.8-2.4); TROPONIN-I <0.06 ng/mL (<0.06)
[2019-03-10 10:01] LABS: ALBUMIN 3.5 g/dL (3.4-5.0); TOTAL BILIRUBIN 0.4 mg/dL (<0.1-1.0); TOTAL PROTEIN 7.4 g/dL (6.4-8.2)
[2019-03-10 10:54] LABS: URINE BILIRUBIN NEGATIVE (Negative); URINE BLOOD NEGATIVE (Negative); URINE CLARITY CLEAR; URINE COLOR YELLOW; URINE GLUCOSE-RANDOM* NEGATIVE (Negative); URINE KETONES NEGATIVE (Negative); URINE LEUKOCYTES NEGATIVE (Negative); URINE NITRITE NEGATIVE (Negative); URINE PROTEIN (DIPSTICK) TRACE (Negative); URINE UROBILINOGEN 0.2 E.U./dl (0.2-1.0)
[2019-03-10 13:03] VITALS: BP 177/75
--- NOTE | 2019-03-10 13:21 | NUR ---
ATTEMPT TO CALL REPORT AT THIS TIME, WAS TOLD RECEIVING RN WOULD CALL BACK WHEN BACK FROM LUNCH "SOON"
--- NOTE | 2019-03-10 13:41 | EKG ---
[address] [address] ELECTROCARDIOGRAM REPORT Name: LUIS CELESTE Room #: 170-17 ADM IN M.R.#: [id number] ������������������ Admission: 03/10/19 ������������������ Attend Phys: Andrae Herbert MD Discharge: ������������������ Date of : 32 Report #: [id number] ����������������������������������������������������������������� [id number] THIS REPORT FOR: //name// [facility] ED Test Date: 2019-03-10 Test Time: 09:27:34 Pat Name: LUIS CELESTE Department: Room: 170 Gender: F Nurse Clinician: NERY : 1930 Requested By: Gunner Bergeron Order Number: [id number] MD: Adrian Da Silva Measurements Intervals [place] Rate: 69 P: 43 ME: 176 QRS: 23 QRSD: 108 T: -13 QT: 490 QTc: 525 Interpretive Statements Sinus rhythm Borderline low voltage, extremity leads Anteroseptal infarct, old Prolonged QT interval Compared to ECG 01/11/2018 07:55:46 Myocardial infarct finding now present Prolonged QT interval now present Electronically Signed On 03-10-2019 13:41:20 CDT by Adrian Da Silva [email or web address] ��������������������������������������������� <ELECTRONICALLY SIGNED> ���������������������������������������� By: Adrian Da Silva MD ��������������������������������������������� 03/10/19 1341 6 09 Adrian Da Silva MD /EPI
[2019-03-10 13:58] VITALS: BP 176/55
== END 2019-03-10 14:11 | disposition still patient (30) ==
LOC: ER 08:48 → EROBS 12:47 → 4E 14:11 → EROBS 16:14 → 4E 16:14
PROVIDERS: Emergency Medicine
DX: I12.9 Hypertensive chronic kidney disease with stage 1 through stage 4 chronic kidney disease, or unspecified chronic kidney disease (principal); N18.9 Chronic kidney disease, unspecified; D64.9 Anemia, unspecified; E87.1 Hypo-osmolality and hyponatremia; J44.9 Chronic obstructive pulmonary disease, unspecified; Z96.641 Presence of right artificial hip joint; Z88.2 Allergy status to sulfonamides

== ENCOUNTER 2019-03-11 08:21 | Inpatient (IN) | payer OTHER, MEDICARE ==
[~2019-03-11] VITALS: Ht 152.4 cm; Wt 56.7 kg
[~2019-03-11 08:21] MED LIST changes: +PREDNISONE 20 M20 MG PO
[2019-03-11 08:22] VITALS: BP 159/67
[2019-03-11 08:47] LABS: URINE BILIRUBIN NEGATIVE (Negative); URINE BLOOD TRACE (Negative); URINE CLARITY CLOUDY; URINE COLOR YELLOW; URINE GLUCOSE-RANDOM* NEGATIVE (Negative); URINE KETONES NEGATIVE (Negative); URINE LEUKOCYTES NEGATIVE (Negative); URINE NITRITE NEGATIVE (Negative); URINE PROTEIN (DIPSTICK) 1+ (Negative); URINE SPECIFIC GRAVITY 1.015 (1.005-1.035); URINE UROBILINOGEN 0.2 E.U./dl (0.2-1.0)
[2019-03-11 08:49] LABS: ABSOLUTE NEUTROPHILS 5.2 thou/uL (1.4-8.2); HEMATOCRIT 31.5 % (37.0-47.0); HEMOGLOBIN 10.9 gm/dL (12.0-15.0); LYMPHOCYTES 11.4 % (24.0-44.0); MCH 32.4 pg (26.0-34.0); MCHC 34.7 g/dL (28.0-37.0); MCV 93.4 fL (80.0-100.0); MONOCYTES 7.8 % (1.0-8.0); PLATELET COUNT 348 thou/uL (150-400); POLYS 80.8 % (36.0-66.0); RBC 3.37 mil/uL (4.20-5.00); RDW 18.1 % (10.5-14.5); WBC 6.4 thou/uL (4.0-11.0)
[2019-03-11 08:53] LABS: CREATININE 1.4 mg/dL (0.6-1.0); POTASSIUM 3.6 mmol/L (3.5-5.1)
[2019-03-11 08:57] LABS: BACTERIA >30 Many /HPF (None Seen)
[2019-03-11 08:58] LABS: AMORPHOUS URATES Few /LPF (None Seen); CASTS None Seen /LPF (None Seen); SQUAMOUS None Seen /LPF (0-3); URINE RBC 0-2 Rare /HPF (0-2); URINE WBC 0-5 Rare /HPF (0-5)
[2019-03-11 08:59] LABS: ALBUMIN 3.6 g/dL (3.4-5.0); TOTAL BILIRUBIN 0.3 mg/dL (<0.1-1.0); TOTAL PROTEIN 7.6 g/dL (6.4-8.2)
[2019-03-11 10:13] VITALS: BP 163/75
--- NOTE | 2019-03-11 10:30 | NUR ---
REPORT CALLED TO FLOOR, STATES NOT READY WILL CALL BACK
[2019-03-11 11:11] VITALS: BP 162/78
[2019-03-11 13:30] VITALS: BP 143/66
[2019-03-11 19:06] VITALS: BP 155/61
--- NOTE | 2019-03-11 19:49 | NUR ---
ASSUMED CARE OF PATIENT APPROX. 1100. PT A&OX4, VSS, DENIES PAIN. PT RESTING IN BED, INCONTINENT. FALL BUNDLE IN PLACE. WHEEZING HEARD IN ALL LOBES, PRODUCTIVE COUGH. WILL CONTINUE TO MONITOR PATIENT.
[2019-03-12 04:30] VITALS: BP 172/91
[2019-03-12 05:09] LABS: HEMATOCRIT 35.9 % (37.0-47.0); HEMOGLOBIN 12.2 gm/dL (12.0-15.0); MCH 32.1 pg (26.0-34.0); MCHC 34.1 g/dL (28.0-37.0); MCV 94.3 fL (80.0-100.0); RBC 3.81 mil/uL (4.20-5.00); RDW 17.4 % (10.5-14.5); WBC 4.2 thou/uL (4.0-11.0)
--- NOTE | 2019-03-12 05:20 | NUR ---
Pt. rested quietly at intervals during the night when checked on during frequent rounds. She offers no complaints. Assisted up to the bedside comode with one assist and a gait belt. Bed alarm is on.
[2019-03-12 05:27] LABS: CALCIUM 8.8 mg/dL (8.5-10.1); CREATININE 1.3 mg/dL (0.6-1.0); POTASSIUM 3.3 mmol/L (3.5-5.1)
[2019-03-12 07:51] VITALS: BP 171/71
[2019-03-12 14:59] VITALS: BP 157/68
--- NOTE | 2019-03-12 18:31 | NUR ---
PT A&OX4, VSS, DENIES PAIN. PT COMPLIANT WITH CARE. GINETTE HER HOME HEALTHCARE PROVIDER IN AT BEDSIDE. NO SIGNS OF DISTRESS. FALL BUNDLE IN PLACE. WILL CONTINUE TO MONITOR.
[2019-03-12 19:30] VITALS: BP 169/77
--- NOTE | 2019-03-13 | NUR ---
Pt. rested quietly without any complaints. Bed alarm is on.
--- NOTE | 2019-03-13 01:58 | NUR ---
PT A/O X4 SKIN C/D/I, LUNGS DIMINISHED IN ALL ESQUIVEL WITH A OCCASIONAL COUGH AWAITING SPUTUM SPECIMEN BUT PT DENIES BRINGING ANYTHING UP. UP WITH 1 GB AND A WALKER TO BSC. MOVES WELL. RT TX'S ,IV STEROIDS AND ABT'S CONTINUE. FALL PRECAUTIONS REMAIN IN PLACE, PT IN BED WITH BED ALARM SET.
[2019-03-13 03:45] VITALS: BP 141/72
--- NOTE | 2019-03-13 08:37 | EKG ---
[address] [employer] [place] [address] ELECTROCARDIOGRAM REPORT Name: LUIS CELESTE Room #: 450-P ADM IN M.R.#: [id number] ������������������ Admission: 03/11/19 ������������������ Attend Phys: Andrae Herbert MD Discharge: ������������������ Date of : 32 Report #: [id number] ����������������������������������������������������������������� [id number] THIS REPORT FOR: //name// [facility] ED Test Date: 2019-03-11 Test Time: 09:07:55 Pat Name: LUIS CELESTE Department: Room: 450 Gender: F Vulcanizer Rubber Plate: kf : 1930 Requested By: Mary Jo Benites Order Number: [id number] MD: Adrian Da Silva Measurements Intervals [place] Rate: 69 P: 54 MD: 206 QRS: 12 QRSD: 105 T: 31 QT: 388 QTc: 416 Interpretive Statements Sinus rhythm Borderline low voltage, extremity leads Compared to ECG 03/10/2019 09:27:34 Electronically Signed On 03-13-2019 8:37:33 CDT by Adrian Da Silva [email or web address] ��������������������������������������������� <ELECTRONICALLY SIGNED> ���������������������������������������� By: Adrian Da Silva MD ��������������������������������������������� 03/13/19 0837 6 6 Adrian Da Silva MD /LUISITO
[2019-03-13 08:52] VITALS: BP 178/79
--- NOTE | 2019-03-13 10:16 | NUR ---
Discharge Planning: city planner sent new Skilled referrral to [facility] fax . Patient expected to discharge today. DP sent message to Thea at [facility] to let her know of new referral.
[2019-03-13] MEDS ORDERED: CEFDINIR300 MG PO ×2 (12:00)
--- NOTE | 2019-03-13 13:39 | NUR ---
PT ADMITTED RELATED TO PNEUMONIA. CM REVIEWED CHART AND SPOKE WITH CARE TEAM. CM MET WITH PT AT BEDSIDE THIS DAY. PT IS A&O X4. CM ROLE INTRODUCED. PT INDICATED SHE LIVES IN A HOUSE WITH HER SPOUSE WITH 5 STEPS TO ENTER AND NO STEPS INSIDE. PT INDICATED SHE HAD BEEN USING A FWW TO ASSIST WITH MOBILITY IMMUNOCHEMIST. PT INDICATED SHE HAD BEEN AT [facility] RECENT[facility]. PT INDICATED SHE WOULD BE RECEPTIVE TO POST ACUTE CARE STAY OR HH IF INIDCATED UPON DC. CM NOTIFIED THAT DR. ALCOCER FELT PT IS MEDICALLY STABLE TO DISHCHARGE TO [facility] FOR POST ACUTE CARE STAY TODAY. CM SPOKE WITH PT AND HER SPOUSE THEY ARE AWARE AND AGREEABLE. PT IS TO DISHCARGE TO [facility] AT 1400 VIA WC VAN. CHART COPY ORDERED. ORDERS FAXED. NUMBER FOR REPORT GIVEN TO RN. NO OTHER CM INTERVENTION INDICATED AT THIS TIME. CASE CLOSED.
--- NOTE | 2019-03-13 15:07 | NUR ---
PT STABLE TRHOUGHOUT SHIFT. PT UP TO CHAIR FOR MAJORITY OF SHIFT, WORKED WELL WITH PT AND HAD GOOD APPETITE. PT DISCHARGED TO [facility] OP. REPORT CALLED TO LARRY. PT LEFT UNIT VIA WHEELCHAIR VAN.
== END 2019-03-13 15:15 | DRG 190 ==
LOC: ER 08:21 → 4W 09:37 → EROBS 09:37 → 4W 11:11
PROVIDERS: Emergency Medicine; ADMIT Family Medicine
DX: J44.1 Chronic obstructive pulmonary disease with (acute) exacerbation (principal); J18.9 Pneumonia, unspecified organism; E87.1 Hypo-osmolality and hyponatremia; N18.9 Chronic kidney disease, unspecified; I12.9 Hypertensive chronic kidney disease with stage 1 through stage 4 chronic kidney disease, or unspecified chronic kidney disease; Z96.641 Presence of right artificial hip joint; Z79.899 Other long term (current) drug therapy; Z79.51 Long term (current) use of inhaled steroids; Z88.2 Allergy status to sulfonamides; Z79.82 Long term (current) use of aspirin
CPT/HCPCS: 10040; 10045

== ENCOUNTER 2019-05-02 15:51 | Inpatient (IN) | payer OTHER, MEDICARE ==
[~2019-05-02] VITALS: Ht 160 cm; Wt 56.7 kg
[2019-05-02 15:52] VITALS: BP 158/81
[2019-05-02 16:55] LABS: ABSOLUTE NEUTROPHILS 12.7 thou/uL (1.4-8.2); BASOPHILS 0.4 % (0.0-2.0); HEMATOCRIT 31.7 % (37.0-47.0); HEMOGLOBIN 11.2 gm/dL (12.0-15.0); LYMPHOCYTES 1.2 % (24.0-44.0); MCH 33.2 pg (26.0-34.0); MCHC 35.2 g/dL (28.0-37.0); MCV 94.1 fL (80.0-100.0); MONOCYTES 1.4 % (1.0-8.0); PLATELET COUNT 194 thou/uL (150-400); RBC 3.37 mil/uL (4.20-5.00); RDW 17.7 % (10.5-14.5); WBC 13.1 thou/uL (4.0-11.0)
[2019-05-02 17:04] LABS: ANION GAP 6 mmol/L (7-16); BUN 61 mg/dL (7-18); CALCIUM 10.9 mg/dL (8.5-10.1); CHLORIDE 98 mmol/L (98-107); CO2 30 mmol/L (21-32); CREATININE 1.7 mg/dL (0.6-1.0); GLUCOSE 168 mg/dL (74-106); POTASSIUM 4.8 mmol/L (3.5-5.1); SODIUM 134 mmol/L (136-145)
[2019-05-02 17:14] LABS: SGOT 86 U/L (15-37); SGPT 416 U/L (30-65); TOTAL BILIRUBIN 0.3 mg/dL (<0.1-1.0); TOTAL PROTEIN 6.4 g/dL (6.4-8.2); TROPONIN-I <0.06 ng/mL (<0.06)
[2019-05-02 17:22] LABS: URINE BILIRUBIN NEGATIVE (Negative); URINE BLOOD TRACE (Negative); URINE CLARITY CLEAR; URINE COLOR YELLOW; URINE GLUCOSE-RANDOM* NEGATIVE (Negative); URINE KETONES NEGATIVE (Negative); URINE LEUKOCYTES-REFLEX NEGATIVE (Negative); URINE PROTEIN (DIPSTICK) TRACE (Negative); URINE SPECIFIC GRAVITY 1.015 (1.005-1.035); URINE UROBILINOGEN 0.2 E.U./dl (0.2-1.0)
[2019-05-02 17:23] LABS: URINE NITRITE-REFLEX POSITIVE (Negative)
[2019-05-02 17:35] LABS: BACTERIA-REFLEX >30 Many /HPF (None Seen); CASTS None Seen /LPF (None Seen); CRYSTALS None Seen /LPF (None Seen); SQUAMOUS 0-3 Few /LPF (0-3); URINE RBC 0-2 Rare /HPF (0-2); URINE WBC-REFLEX 0-5 Rare /HPF (0-5)
[2019-05-02 20:28] VITALS: BP 151/72
[2019-05-02 20:45] VITALS: BP 161/72
--- NOTE | 2019-05-02 20:45 | NUR ---
PT RECIEVED FROM ER. PT ORIENTED TO ROOM. BED ALARM ON. CALL LIGHT GIVEN TO PT. RN CONPLETED ASSESSMENT. DR. ALCOCER NOTIFIED, ORDERS OBTAINED. DEVI (GRANDDAUGHTER) NOTIFIED. PT RESTING COMFORTABLY.
[2019-05-02] MEDS ORDERED: MUCINEX DM ER1 EAC1 PO (21:55)
[2019-05-03 03:58] VITALS: BP 158/71
--- NOTE | 2019-05-03 06:07 | NUR ---
END OF SHIFT NOTE. ASSUMED CARE AT 1900 05/02/19. PATIENT CONFUSED, ALERT TO SELF AND TIME. MULTIPLE WOUND FOUND AND DOCUMENTED VIA PICTURES AND CHARTING. PT UNABLE TO VOID ON OWN, BLADDER SCANNER REVEALED >999 ML OF URINE IN BLADDER, ARCHER CATHETER ORDER OBTAINED FROM DR. ALCOCER, AND A ARCHER WAS PLACED. COMPLETE BED BATH GIVEN.
[2019-05-03 07:10] VITALS: BP 177/73
--- NOTE | 2019-05-03 08:12 | EKG ---
[place] [address] [facility] [place] [address] ELECTROCARDIOGRAM REPORT Name: TREV CELESTEPARAS Edvin Room #: 459-P ADM IN M.R.#: [id number] Admission: 05/02/19 Attend Phys: Andrae Herbert MD Discharge: Date of : 32 Report #: [id number] THIS REPORT FOR: //name// [facility] ED Test Date: 2019-05-02 Test Time: 16:01:30 Pat Name: LUIS CELESTE Department: Room: [facility] Gender: F Api Architect: soumya : 1930 Requested By: Kristy Victor Order Number: [id number] MD: Lg Haines Measurements Intervals [place] Rate: 66 P: 49 AK: 74 QRS: 0 QRSD: 107 T: 47 QT: 391 QTc: 410 Interpretive Statements Sinus rhythm Poor R wave progression Compared to ECG 04/08/2019 08:50:33 No significant change was found Electronically Signed On 05-03-2019 8:12:26 CDT by Lg Haines [email or web address] <ELECTRONICALLY SIGNED> By: Lg Haines MD, [facility] 05/03/1912 1601 160 Lg Haines MD, [facility] /EPI
--- NOTE | 2019-05-03 09:54 | NUR ---
WOUND CONSULT; THIS PATIENT WAS ADMITTED YESTERDAY 01/31/19. THERE ARE WOUND TO THE SACRUM//COCCYX THAT IS A STAGE 3, THERE IS A STAGE 2 WOUND TO THE LEFT BUTTOCK. NO DRAINAGE NOTED. A YELLOW TINGE TO THE WOUND BEDS POSSIBLY URINE CONTAMINATION. THE PATIENT IS INCONTINENT X2. THESE ARE SMALL WOUNDS CLOSE IN PROXIMITY, ONE DRESSING IS ADEQUATE. A LOW AIR LOSS SURFACE IS EMPLOYED AND WEDGES AND PILLOWS WELL. RECOMMENDATIONS; 1-WOUND CARE TO SACRUM/COCCYX/LEFT BUTTOCK: GENTLY CLEANSE WITH WOUND CLEANSER OR NORMAL SALINE, COVER WITH OPTIFOAM BORDER, COMPLETE CARES DAILY AND PRN SOILAGE. DISCUSSED WITH RN
[2019-05-03 14:25] VITALS: BP 171/69
--- NOTE | 2019-05-03 14:56 | NUR ---
PT ADMITTED RELATED TO UTI. CM REVIEWED CHART AND SPOKE WITH CARE TEAM. CM MET WITH PT AT BEDSIDE THIS DAY. PT IS ALERT TO SELF ONLY. CM CONFIRMED PT'S CONTACTS AND CALLED PT'S SPOUSE/DPOA BILL. BILL INDICATED THAT HAS BEEN LIVING AT THE [facility] IN ASSISTED LIVING. HE INDICATED THAT USES A WHEELCHAIR TO ASSIST WITH MOBILITY. SPOUSE DIDN'T THINK PT HAD BEEN GETTING ANY HH SERVICES RECENTLY. CM CONFIRMED THAT PT HAD BEEN AT [facility] IN THE PAST AND SPOUSE INDICATED THAT HE FEELS THAT THEY DISCHARGE PT TOO QUICKLY. HE ISN'T SURE WHAT HE PLAN IS UPON DC. CM TO FOLLOW INDICATED WITH DC PLANNING.
[2019-05-03 19:20] VITALS: BP 167/67
--- NOTE | 2019-05-03 20:28 | NUR ---
ASSUMED CARE OF PATIENT AT 0715, PATIENT ALERT WITH CONFUSION. PATIENT NOT IMPULSIVE, FALL PRECAUTIONS IN PLACE. TURN EVERY 2 HOURS, SMALL COCCYX WOUNDS, RIGHT POSTERIOR AREAS NOTED, WOUND CARE SAW THE PATIENT. THIS RN TOOK PICTURES OF WOUND AREAS. PATIENT HAS LARGE HEMATOMA TO RIGHT HIP AREA, OLD INCISION NOTED, RIGHT TOTAL HIP 01/2019, STATES PATIENT FELL ON RIGHT HIP AT THE FACILITY. PATIENT HAS LEFT AV IV WITH NS AT 80CC/HR. DR ALCOCER HERE THIS AM, KEEP PATIENT NPO FOR US OF ABDOMEN AND DUE TO ELEVATED LIVER ENZYMES. THIS RN CALLED DR ALCOCER FOR DIET ORDER, RECEIVED ORDER FOR REGULAR DIET, AND SUPPLEMENTS ORDERED PER DIETARY, SHE DRANK 100% FOR DINNER AND CHARTED. PATIENT HAS EDEMA TO BILATERAL LEGS, SCD'S IN PLACE. BP ELEVATED 170/70' AND 170'S/68 RECEIVED ORDER FOR NORVASC 5MG X 1. NO C/O PAIN THIS SHIFT. WILL CONTINUE MONITOR. 170'S/68, NOTIFIED DR ALCOCER, RECEIVED ORDER FOR NORVASC 5MG X 1. BILL//DPOA CALLED TO CHECK ON PATIENT AND UPDATE GIVEN. NO C/O PAIN THIS SHIFT. WILL CONTINUE TO MONITOR.
[2019-05-04 04:06] VITALS: BP 144/69
--- NOTE | 2019-05-04 05:12 | NUR ---
Pt. rested quietly at intervals during the night when checked on during frequent rounds. She offers no c/o pain. Turned and repositioned. Z-guard applied to buttocks as ordered. Bed alarm is on.
[2019-05-04 06:13] LABS: HEMATOCRIT 26.3 % (37.0-47.0); MCV 94.1 fL (80.0-100.0); RBC 2.79 mil/uL (4.20-5.00); RDW 17.8 % (10.5-14.5); WBC 7.2 thou/uL (4.0-11.0)
[2019-05-04 06:18] LABS: HEMOGLOBIN 9.2 gm/dL (12.0-15.0)
[2019-05-04 06:26] LABS: CREATININE 1.2 mg/dL (0.6-1.0); POTASSIUM 3.5 mmol/L (3.5-5.1)
[2019-05-04 06:28] LABS: CALCIUM 8.2 mg/dL (8.5-10.1)
[2019-05-04 07:32] VITALS: BP 132/51
--- NOTE | 2019-05-04 10:05 | NUR ---
Nutrition: REC consider adding MVI, ascorbic acid supplementation for wound healing.
--- NOTE | 2019-05-04 13:46 | NUR ---
DISCHARGE PLANNING. POST ACUTE RECOMMENDED AT DISCHARGE. PATIENT WILL BE READY FOR DISCHARGE TOMORROW. PATIENT REFERRAL FAXED TO [facility] FOR PATIENTS POST ACUTE NEEDS. CALL PLACED TO PAMELA AVENDANO ADMISSIONS TO NOTIFY. JUAN ALBERTO TO REVIEW AND NOTIFY CM. AWAITING RESPONSE. FOLLOWING.
[2019-05-04 14:15] VITALS: BP 131/53
--- NOTE | 2019-05-04 14:42 | NUR ---
CM MET WITH PT'S CAREGIVER GINETTE THIS AM. SHE INDICATED THAT SHE PROVIDES CARE FOR BOTH PT AND HER SPOUSE. SHE INDICATED THAT THEY THINK THAT POST ACUTE CARE STAY WOULD BE BENEFICIAL. CM PROVIDED HER WITH SNF LIST TO SHARE WITH FAMILY. DEVI PT'S GDTR ASKED THAT REFERRAL BE SENT TO [facility]. GINETTE INDICATED THAT THEY PLAN ON HER GOING OVER TO THE [facility] ONCE SHE RETURNS THERE AND STAYING WITH HER FROM 12 ON. CM TO FOLLOW INDICATED WITH DC PLANNING.PT MAY BE MEDICALLY STABLE TO DC TO [facility] FOR THE [facility] TOMORROW. CM TO FOLLOW S INDIATED WITH DC PLANNING.
--- NOTE | 2019-05-04 20:13 | NUR ---
ASSUMED CARE 0700. ALERT X3 WITH FORGETFULNESS. DRESSING CHANGES M/W/F ZGAURD TO SANTI/SACRAL AREA. SEVERELY CONSTIPATED REQUIRED DIGITAL REMOVAL. TURNS EVERY 2 HOURS TOLERATED. FALL PRECAUTIONS IN PLACE. PATIENT UNABLE TO DEMONSTRATE CALL LIGHT. STAFF TO ANTICIPATE NEEDS.
[2019-05-04 20:37] VITALS: BP 133/55
[2019-05-05 05:21] LABS: HEMATOCRIT 21.4 % (37.0-47.0); HEMOGLOBIN 7.6 gm/dL (12.0-15.0); MCH 33.6 pg (26.0-34.0); MCHC 35.7 g/dL (28.0-37.0); MCV 94.3 fL (80.0-100.0); RBC 2.27 mil/uL (4.20-5.00); RDW 17.9 % (10.5-14.5); WBC 5.7 thou/uL (4.0-11.0)
--- NOTE | 2019-05-05 05:33 | NUR ---
ASSUMED CARE OF PT AT 1900HRS. PT IS ALERT BUT ONLY ORIENTED TO SELF AND SITUATION. ARCHER IS PATIENT AND CONTINUED. PT TURNED EVERY 2-[address] PT WAS ABLE TO GET COMFORTABLE AND SLEEP PART OF THE SHIFT. NO OTHER S/S OF ACUTE DISTRESS. WILL CONTINUE TO MONITOR.
[2019-05-05 05:39] LABS: CALCIUM 7.4 mg/dL (8.5-10.1); POTASSIUM 3.5 mmol/L (3.5-5.1)
[2019-05-05 07:22] VITALS: BP 139/58
[2019-05-05 15:17] VITALS: BP 135/59
--- NOTE | 2019-05-05 15:18 | NUR ---
PT STABLE THROUGHOUT SHIFT. PT REMAINS CONFUSED, NO C/O PAIN, SOA OR NAUSEA. CHANGED DRESSINGS ON WOUNDS. Q2 TURNS, FALL PRECUATIONS IN PLACE. PT RESTING COMFORTABLY, PROBABLE DC TOMORROW.
--- NOTE | 2019-05-05 16:28 | NUR ---
CARE TEAM INDICATED THAT PT WILL LIKELY BE MEDICALLY STABLE TO DC TO [facility] TOMORROW Wednesday05/06/19. PT IS GOING TO [facility] VIA AT 1330 TOMORROW. CHART COPY ORDERED. ORDERS TO BE FAXED TO . REPORT TO BE CALLED TO . CM CALLED SPOUSE AND NOTIFIED HIM.
[2019-05-05 19:35] VITALS: BP 166/66
--- NOTE | 2019-05-06 03:39 | NUR ---
ASSUMED CARE OF PT AT 1900HRS. PT IS ALERT BUT ONLY RRIENTED TO SELF. PT TURNED EVERY 2-3 HRS. CATHETER IS PATIENT. PT WAS ABLE TO SLEEP PART OF THE SHIFT. NO OTHER S/S OF ACUTE DISTRESS. WILL CONTINUE TO MONITOR.
[2019-05-06 04:42] VITALS: BP 162/72; BP 201/86
[2019-05-06 09:52] LABS: HEMATOCRIT 27.5 % (37.0-47.0); MCH 33.3 pg (26.0-34.0); MCHC 35.1 g/dL (28.0-37.0); MCV 94.7 fL (80.0-100.0); RBC 2.9 mil/uL (4.20-5.00); RDW 17.9 % (10.5-14.5); WBC 7.2 thou/uL (4.0-11.0)
[2019-05-06 09:56] LABS: HEMOGLOBIN 9.7 gm/dL (12.0-15.0)
[2019-05-06 15:00] VITALS: BP 140/70
--- NOTE | 2019-05-06 17:40 | NUR ---
PT STABLE THROUGHOUT SHIFT. PT WAS TO DC TO [facility], HOWEVER PHYSICIAN DECIDED SHE WAS NOT MEDICALLY STABLE YET. PT HAD SWALLOW EVAL WITH ST, DIET CHANGED TO MECHANICALLY GROUND AND NECTAR THICK FLUIDS. PT TURNED Q2 HOURS. PT RESTING, WILL CONTINUE TO MONITOR.
[2019-05-06 20:17] VITALS: BP 149/65
--- NOTE | 2019-05-07 02:12 | NUR ---
ASSUMED CARE OF PT AT 1900HRS. PT IS AOX2 AND FALL PRECAUTION IS IN PLACE. PT TURNED Q2-3HRS. CATHETER IS PATIENT. PT WAS COMFORTABLE AND WAS ABLE TO SLEEP PART OF THE SHIFT. ISOLATION MAINTAINED FOR VRE IN URINE. NO OTHER S/S OF ACUTE DISTRESS. WILL CONTINUE TO MONITOR.
[2019-05-07 07:09] VITALS: BP 148/60
[2019-05-07 14:05] VITALS: BP 114/57
[2019-05-07 20:04] VITALS: BP 142/57
--- NOTE | 2019-05-07 20:24 | NUR ---
MINIMALLY VERBAL THIS SHIFT-WILL ANSWER YES/NO-FLAT AFFECT-REQUIRES TOTAL ASSIST WITH ALL CARES-APPETITE POOR-TAKING PO FLUIDS WITH MUCH ENCOURAGEMNT-DENIES PAIN WHEN ASKED-REPOSITIONED EVERY 2 HRS-ARCHER PATENT-
--- NOTE | 2019-05-08 02:41 | NUR ---
ASSUMED CARE OF PT AT 1900HRS. PT IS ALERT BUT ONLY ORIENTED TO SELF. FALL PRECAUTION IN PLACE. PT TURNED Q2-3HRS. CATHETER IS PATIENT. PT DID NOTREPORT ANY PAIN THIS SHIFT. PT WAS ABLE TO GET COMFORTABLE AND SLEEP PART OF THE SHIFT. VSS AND NO S/S OF ACUTE DISTRESS. WILL CONTINUE TO MONITOR.
[2019-05-08 03:16] VITALS: BP 135/58
[2019-05-08 06:34] LABS: HEMATOCRIT 24.3 % (37.0-47.0); HEMOGLOBIN 8.3 gm/dL (12.0-15.0); MCH 32.7 pg (26.0-34.0); MCHC 34.1 g/dL (28.0-37.0); MCV 95.9 fL (80.0-100.0); PLATELET COUNT 129 thou/uL (150-400); RBC 2.54 mil/uL (4.20-5.00); WBC 6.1 thou/uL (4.0-11.0)
[2019-05-08 06:58] LABS: ALBUMIN 1.7 g/dL (3.4-5.0); CALCIUM 7.4 mg/dL (8.5-10.1); CREATININE 0.9 mg/dL (0.6-1.0); POTASSIUM 3.2 mmol/L (3.5-5.1); TOTAL BILIRUBIN 0.3 mg/dL (<0.1-1.0); TOTAL PROTEIN 4.6 g/dL (6.4-8.2)
[2019-05-08] MEDS ORDERED: LEVAQUIN 750 M750 MG PO (07:57)
[2019-05-08] MEDS ORDERED: LINEZOLID600 MG PO (07:58)
[2019-05-08 08:00] VITALS: BP 138/60
[2019-05-08 08:26] LABS: ABSOLUTE NEUTROPHILS 5.5 thou/uL (1.4-8.2); PLATELET ESTIMATE NORMAL
[2019-05-08 09:20] VITALS: BP 138/60
--- NOTE | 2019-05-08 10:43 | NUR ---
DISCHARGE NOTE: SW reviewed chart and spoke with nursing and attending physician. Pt is medically stable for discharge to [facility] today. merchandise planner to coordinate and notify family. Chart copy ordered. No further SW needs identified at this time, but is available to assist should needs arise.
--- NOTE | 2019-05-08 11:02 | NUR ---
patient will dc today liam van, no oxygen to [facility], gino sent dc papers to [facility]/vasile [facility] will cb will pickup time. DP will call family when time is given. CC ordered
--- NOTE | 2019-05-08 12:32 | NUR ---
Assumed pt care at 7am.Assessment completed.vss.Dr Herbert here, stated that pt will dc to [facility] at 1400.Lithographic Proofer Apprentice assisted pt with breakfast. Instructed telegraph printer mechanic to stop feeding pt when pt started coughing.Received call from pt's family.updates given.Pt will be leaving for [facility] between 14&1430 today per wc van.Pt in bed eating lunch at present.Will continue to monitor.
--- NOTE | 2019-05-08 15:28 | NUR ---
WOUND CARE FOLLOW UP; THE WOUNDS WERE ASSESSED. NO S/S OF INFECTION. THE WOUNDS ARE STABLE TODAY, SOME HEALING IS NOTED. RECOMMENDATIONS; CONTINUE CURRENT TREATMENT. DISCUSSED WITH STAFF
--- NOTE | 2019-05-12 11:12 | HC ---
[facility] [place] [address] CONSULTATION Name: LUIS CELESTE Room #: 459-P [facility] IN M.R.#: [id number] Admission: 05/02/19 Attend Phys: Andrae Herbert MD Discharge: 05/08/19 Date of : 32 Report #: [id number] THIS REPORT FOR: //name// CC: Andrae Herbert DATE OF SERVICE: 05/07/2019 CONSULTATION: Infectious diseases. HISTORY OF PRESENT ILLNESS:Marcial Celeste is an 88-year-old white female who was admitted to the hospital on 05/02/2019 complaining of weakness and swelling in her legs. She has been having declining mental status for several weeks. She had evidence of urinary tract infection and was treated with Levaquin. On 05/06/2019, the final report came back showing Pseudomonas in the urine, which was susceptible to the Levaquin, but also vancomycin-resistant Enterococcus. Infectious disease consultation was requested because of resistant josh. PAST MEDICAL HISTORY: Significant for a fall with a hip fracture requiring hip replacement. The patient really has not done well since then. She has diagnosis of hypertension and COPD. ALLERGIES: THERE IS NOTED ALLERGY TO SULFA. SOCIAL HISTORY: The patient is . She lives in a single-family home with her . I have no history regarding tobacco and alcohol. REVIEW OF SYSTEMS: CONSTITUTIONAL: The patient is somewhat confused, but verbal. She denies any complaints. She specifically denies any headache, sinus congestion, sore throat or trouble swallowing. PULMONARY: She denies cough, chest pain or shortness of breath. CARDIOVASCULAR: She denies any angina, syncope or palpitations. GASTROINTESTINAL: She denies nausea, vomiting, diarrhea, constipation or abdominal pain. GENITOURINARY: She denies any urinary symptoms. She does note incontinence, which is somewhat chronic and not different. She does not have any dysuria, urgency and is unaware of any frequency. MUSCULOSKELETAL: The patient denies any orthopedic or arthritic symptoms. PHYSICAL EXAMINATION: GENERAL: The patient appears alert, not oriented, but comfortable, not in any distress. VITAL SIGNS: Show temperature of 36.7, blood pressure 148/60. The patient did not know her age or that she was in the hospital. She did know her name and that she had been "for a long time." This is consistent with the face sheet data. [address] [address] CONSULTATION Name: LUIS CELESTE Room #: 459-P [facility] IN M.R.#: [id number] Admission: 05/02/19 Attend Phys: Andrae Herbert MD Discharge: 05/08/19 Date of : 32 Report #: [id number] SKIN: Has no rash, lesion or exanthem. ENT: Examination was otherwise unremarkable. HEART: Heart sounds normal. LUNGS: Clear. ABDOMEN: Belly soft, not tender. Flanks are not tender. EXTREMITIES: No further swelling. LABORATORY DATA: The CBC shows a white count of 7.2, hemoglobin was 11.2 on admission, went down to 7.6 and then transfused back up to 9.7, platelet 130,000. Electrolytes unremarkable. BUN 29, creatinine 1.0, glucose has ranged from 97-168. The CMP showed the SGOT was elevated at 86 and the SGPT elevated at 416. The lactate was normal. Alkaline phosphatase was normal. BNP was normal. The cultures of the urine showed the 2 organisms. The stool for occult blood was positive. The urinalysis on admission was positive for nitrite, but had 0-5 white cells, many bacteria. IMPRESSION: Weakness and confusion, getting worse. I am not convinced this is all urinary tract infection. Simple urinary tract infection should not cause the elevated liver function test and the severe anemia. It may be worthwhile to pursue more extensive workup if the family would like to try to discover why the patient is declining. With the vancomycin-resistant Enterococcus in the urine, the only reasonable medication would be linezolid. Fortunately, this is available orally. We could give him a dose of 600 mg p.o. b.i.d. for 5 days. We can change the Levaquin to p.o. as well. I will go ahead and order a followup CBC and CMP, sedimentation rate. The chest x-ray was done yesterday that suggested possible pneumonia or pulmonary edema. I appreciate the opportunity to offer input in the care of this pleasant patient. Dr. Obrien will return tomorrow for additional followup. <ELECTRONICALLY SIGNED> By: Juan Rothman MD 05/12/19 1112 1431 Juan Rothman MD /nt
== END 2019-05-08 17:47 | DRG 682 ==
LOC: ER 15:51 → 4W 20:37 → EROBS 20:37 → 4W 20:42
PROVIDERS: Internal Medicine Infectious Disease; Nurse Practitioner Family; ADMIT Family Medicine
DX: N17.9 Acute kidney failure, unspecified (principal); G92 Toxic encephalopathy; N39.0 Urinary tract infection, site not specified; N18.9 Chronic kidney disease, unspecified; I12.9 Hypertensive chronic kidney disease with stage 1 through stage 4 chronic kidney disease, or unspecified chronic kidney disease; J44.9 Chronic obstructive pulmonary disease, unspecified; Z96.641 Presence of right artificial hip joint; Z79.899 Other long term (current) drug therapy; Z88.2 Allergy status to sulfonamides; F03.90 Unspecified dementia, unspecified severity, without behavioral disturbance, psychotic disturbance, mood disturbance, and anxiety; D69.6 Thrombocytopenia, unspecified
CPT/HCPCS: 10040

== ENCOUNTER 2019-05-16 22:03 | Inpatient (IN) | payer OTHER, MEDICARE ==
[~2019-05-16] VITALS: Ht 167.6 cm; Wt 63.9 kg
--- NOTE | ~2019-05-16 | HC ---
[facility] [place] [address] CONSULTATION Name: LUIS CELESTE Room #: 240-P [facility] IN M.R.#: [id number] Admission: 05/17/19 Attend Phys: Andrae Herbert MD Discharge: 05/24/19 Date of : 32 Report #: [id number] THIS REPORT FOR: //name// CC: Andrae Herbert MD REQUESTING PHYSICIAN: Dr. Herbert. CHIEF COMPLAINT: Hypoxic respiratory failure. HISTORY OF PRESENT ILLNESS: The patient is an 88-year-old female who initially presented with what appeared to be acute respiratory distress syndrome, possibly secondary to her history of COPD, asthma in addition to new onset aspiration pneumonia. The patient was intubated on 05/19/2019. Subsequently, she has had difficulties with responsiveness and also has had difficulties with recovery overall to be able to come off the ventilator. She does of note have a history of possible dementia as well. is present at bedside as well as granddaughter for my interview. They currently have discussed extensively with Dr. Herbert and wished to pursue palliative extubation. At this point in time, they do not had have significant questions with regards to this. She appears to be in little distress at this time but is not responsive. PAST MEDICAL HISTORY: Atrial fibrillation, hypothyroidism, COPD, asthma, chronic diastolic CHF, moderate mitral regurgitation, dementia. SOCIAL HISTORY: No tobacco use history. is medical decision maker. MEDICATIONS: Amiodarone, Spiriva, albuterol, aspirin, Cardizem, Travatan. FAMILY HISTORY: Noncontributory. ALLERGIES: SULFA. REVIEW OF SYSTEMS: General: Unable to obtain due to present medical condition. PHYSICAL EXAMINATION: VITAL SIGNS: Temperature 36.2, pulse 88, respirations 20, blood pressure 96/43, 98% on ventilator support. GENERAL: Appears to be in no acute distress currently. HEENT: Minimal responsiveness now. CARDIOVASCULAR: She has irregularly irregular rate and rhythm. ABDOMEN: Nondistended. EXTREMITIES: No significant edema in upper extremities. LABORATORY DATA: Include white blood cell 5.4, hemoglobin 7.5, platelet 56, creatinine 2.2, sodium 147, ALT 102, AST 58. [facility] [address] [place] [address] CONSULTATION Name: LUIS CELESTE Room #: 240-P [facility] IN .R.#: [id number] Admission: 05/17/19 Attend Phys: Andrae Herbert MD Discharge: 05/24/19 Date of : 32 Report #: [id number] ASSESSMENT AND PLAN: 1. Acute combined respiratory failure. Have discussed with both granddaughter and with who wish to withdrawal of ventilatory support have discussed the process of this with them and also with staff. Discussed premedication and also switching to CPAP for short period of time to assess her tolerance of being without the ventilator and to minimize discomfort. They are amenable to this. We will proceed with this plan at this time. She is DNR status. This is confirmed. Have discussed whether they wanted a development technical lead. Nursing staff had confirmed this. I did discuss duration of times may vary for end of life. 2. Have discontinued all available other medications except for comfort related medications including morphine, Ativan at this point in time. Please contact me for any further questions. I have given the nurse my direct contact number for this patient. By: [id number] Yoshi Alonzo DO /nt
[~2019-05-16 22:03] MED LIST changes: +LEVAQUIN 750 M750 MG PO; +LINEZOLID600 MG PO; +MUCINEX DM ER1 EAC1 PO
[2019-05-16 22:06] VITALS: BP 121/98
[2019-05-16 22:31] LABS: HEMATOCRIT 24.1 % (37.0-47.0); HEMOGLOBIN 8.4 gm/dL (12.0-15.0); WBC 9.8 thou/uL (4.0-11.0)
[2019-05-16 22:33] LABS: ABSOLUTE NEUTROPHILS 8.4 thou/uL (1.4-8.2); BASOPHILS 0.5 % (0.0-2.0); LYMPHOCYTES 12.6 % (24.0-44.0); MCH 33.5 pg (26.0-34.0); MCV 95.9 fL (80.0-100.0); MONOCYTES 1.1 % (1.0-8.0); PLATELET COUNT 137 thou/uL (150-400); POLYS 85.8 % (36.0-66.0); RBC 2.51 mil/uL (4.20-5.00); RDW 19.1 % (10.5-14.5)
[2019-05-16 22:38] LABS: ANION GAP 16 mmol/L (7-16); BUN 32 mg/dL (7-18); CALCIUM 8.5 mg/dL (8.5-10.1); CHLORIDE 107 mmol/L (98-107); CO2 19 mmol/L (21-32); CREATININE 1.5 mg/dL (0.6-1.0); GLUCOSE 110 mg/dL (74-106); POTASSIUM 3.9 mmol/L (3.5-5.1); SODIUM 142 mmol/L (136-145)
[2019-05-16 22:49] LABS: ALBUMIN 2.2 g/dL (3.4-5.0); SGOT 280 U/L (15-37); SGPT 468 U/L (30-65); TOTAL BILIRUBIN 0.5 mg/dL (<0.1-1.0); TOTAL PROTEIN 6.1 g/dL (6.4-8.2); TROPONIN-I <0.06 ng/mL (<0.06)
[2019-05-16 23:10] LABS: BE(vivo) -8.5 mmol/L (-2 to +3); HCO3 17.1 mmol/L (22.0-26.0); PCO2 35.4 mmHg (35.0-45.0); PO2 95.8 mmHg (80.0-100.0); pH 7.302 (7.360-7.450); sO2 96.7 % (92.0-98.0)
[2019-05-17] VITALS (36 sets, daily range): BP systolic 86–134; BP diastolic 38–91
[2019-05-17 04:13] LABS: URINE BILIRUBIN NEGATIVE (Negative); URINE BLOOD NEGATIVE (Negative); URINE CLARITY CLEAR; URINE COLOR YELLOW; URINE GLUCOSE-RANDOM* NEGATIVE (Negative); URINE KETONES NEGATIVE (Negative); URINE LEUKOCYTES TRACE (Negative); URINE NITRITE NEGATIVE (Negative); URINE PROTEIN (DIPSTICK) 1+ (Negative); URINE UROBILINOGEN 0.2 E.U./dl (0.2-1.0)
[2019-05-17 05:47] LABS: BACTERIA 1-9 Few /HPF (None Seen); CASTS None Seen /LPF (None Seen); SQUAMOUS 0-3 Few /LPF (0-3); URINE RBC 0-2 Rare /HPF (0-2)
[2019-05-17 05:48] LABS: CRYSTALS None Seen /LPF (None Seen); YEAST Present (None Seen)
--- NOTE | 2019-05-17 08:46 | EKG ---
[place] [address] [facility] [place] [address] ELECTROCARDIOGRAM REPORT Name: CELESTELUIS Room #: 353-P ADM IN M.R.#: [id number] Admission: 05/17/19 Attend Phys: Adrian Bryan MD Discharge: Date of : 32 Report #: [id number] THIS REPORT FOR: //name// [facility] ED Test Date: 2019-05-16 Test Time: 22:14:58 Pat Name: LUIS CELESTE Department: Room: 353 Gender: F Event Attendant: : 1930 Requested By: Mary Jo Benites Order Number: [id number] MD: Lg Haines Measurements Intervals Celoron Rate: 74 P: 48 KS: 49 QRS: 24 QRSD: 101 T: 56 QT: 407 QTc: 452 Interpretive Statements Sinus rhythm No significant abnormality Compared to ECG 05/02/2019 16:01:30 Poor R-wave progression no longer present Electronically Signed On 05-17-2019 8:45:51 CDT by Lg Haines [email or web address] <ELECTRONICALLY SIGNED> By: Lg Haines MD, [facility] 05/17/19 0845 13 13 Lg Haines MD, [facility] /EPI
[2019-05-17 08:52] LABS: % SATURATION 65 % (20-39); IRON 91 ug/dL (50-170); TIBC 140 ug/dL (250-450)
[2019-05-17 10:18] LABS: FOLIC ACID 36.6 ng/mL (8.6-58.9)
[2019-05-17 11:07] LABS: BE(vivo) -4.7 mmol/L (-2 to +3); HCO3 22.1 mmol/L (22.0-26.0); PCO2 50.6 mmHg (35.0-45.0); PO2 63.3 mmHg (80.0-100.0); pH 7.259 (7.360-7.450); sO2 88.6 % (92.0-98.0)
[2019-05-17 14:29] LABS: BE(vivo) -3.9 mmol/L (-2 to +3); HCO3 21.2 mmol/L (22.0-26.0); PCO2 38.3 mmHg (35.0-45.0); sO2 92.4 % (92.0-98.0)
[2019-05-17 18:10] LABS: HEMATOCRIT 20.6 % (37.0-47.0); HEMOGLOBIN 7.2 gm/dL (12.0-15.0); MCH 33.5 pg (26.0-34.0); MCHC 35.1 g/dL (28.0-37.0); MCV 95.3 fL (80.0-100.0); RBC 2.16 mil/uL (4.20-5.00); RDW 19.2 % (10.5-14.5); WBC 6.1 thou/uL (4.0-11.0)
[2019-05-17 21:20] LABS: IgG 494 mg/dL (700-1600)
[2019-05-18] VITALS (51 sets, daily range): BP systolic 113–141; BP diastolic 42–96
[2019-05-18 03:09] LABS: BE(vivo) -4.9 mmol/L (-2 to +3); HCO3 18.6 mmol/L (22.0-26.0); PCO2 28.9 mmHg (35.0-45.0); PO2 82.4 mmHg (80.0-100.0); pH 7.427 (7.360-7.450); sO2 96.5 % (92.0-98.0)
[2019-05-18 06:02] LABS: HEMATOCRIT 23.9 % (37.0-47.0); HEMOGLOBIN 8.3 gm/dL (12.0-15.0); MCH 33.1 pg (26.0-34.0); MCHC 34.9 g/dL (28.0-37.0); MCV 94.7 fL (80.0-100.0); RBC 2.52 mil/uL (4.20-5.00); RDW 17.4 % (10.5-14.5)
[2019-05-18 06:15] LABS: FIBRINOGEN 428.6 mg/dL (210-360); INR 1.4; PROTIME 14.2 Seconds (9.3-11.4)
[2019-05-18 06:25] LABS: ALBUMIN 1.7 g/dL (3.4-5.0); CALCIUM 7.3 mg/dL (8.5-10.1); CREATININE 1.5 mg/dL (0.6-1.0); TOTAL BILIRUBIN 0.6 mg/dL (<0.1-1.0); TOTAL PROTEIN 4.4 g/dL (6.4-8.2)
[2019-05-18 07:13] LABS: HAV IgM AB (ANTI-HAV IgM) Negative (Negative); HEPATITIS B SURFACE AG Negative (Negative); HEPATITIS C VIRUS AB 0.1 (0.0-0.9)
[2019-05-18 07:13] LABS: HAV IgM AB (ANTI-HAV IgM) Negative (Negative); HEPATITIS B SURFACE AG Negative (Negative); HEPATITIS C VIRUS AB <0.1 (0.0-0.9)
--- NOTE | 2019-05-18 08:41 | 2DMMODE ---
[facility] [place] [address] 2 D/M-MODE ECHOCARDIOGRAM Name: LUIS CELESTE Room #: 240-P [facility] IN ..#: [id number] Admission: 05/17/19 Attend Phys: Adrian Bryan, Discharge: Date of : 32 Date of Service: 05/18/19 0841 Report #: [id number] THIS REPORT FOR: //name// APPROVED REPORT Study performed: 05/18/2019 07:32:19 EXAM: Comprehensive 2D, Doppler, and color-flow Echocardiogram Patient Location: ICU Room #: 240 Status: routine BSA: 1.61 HR: 80 bpm BP: 117/48 mmHg Rhythm: NSR Other Information Study Quality: Adequate Technically limited study due to uncooperative, combative patient/not all measurements taken. Indications COPD exacerbation, sepsis. 2D Dimensions RVDd: 34.01 mm IVSd: 9.52 (7-11mm) LVOT Diam: 19.18 (18-24mm) LVDd: 43.56 mm PWd: 9.96 (7-11mm) Ascending Ao: 32.01 (22-36mm) LVDs: 25.10 (25-40mm) Aortic Root: 30.33 mm Volumes Left Atrial Volume (Systole) Single Plane 4CH: 41.26 mL Single Plane 2CH: 58.14 mL LA ESV Index: 33.00 mL/m2 Aortic Valve AoV Peak Jemal.: 1.60 m/s AO Peak Gr.: 10.27 mmHg LVOT Max P.11 mmHg LVOT Max V: 1.01 m/s LAZARA Vmax: 1.83 cm2 Mitral Valve E/A Ratio: 0.9 [facility] [place] [address] 2 D/M-MODE ECHOCARDIOGRAM Name: LUIS CELESTE Room #: [facility] IN [facility].#: [id number] Admission: 05/17/19 Attend Phys: Adrian Bryan, Discharge: Date of : 32 Date of Service: 05/18/19 0841 Report #: [id number] MV Decel. Time: 208.93 ms MV E Max Jemal.: 0.92 m/s MV A Jemal.: 1.06 m/s MV PHT: 60.59 ms Pulmonary Valve PV Peak Jemal.: 1.17 m/s PV Peak Gr.: 5.44 mmHg Tricuspid Valve TR Peak Jemal.: 3.10 m/s RAP Estimate: 5.00 mmHg TR Peak Gr.: 38.56 mmHg PA Pressure: 44.00 mmHg Left Ventricle The left ventricle is normal size. There is normal LV segmental wall motion. There is normal left ventricular wall thickness. Left ventricular systolic function is normal. LVEF is 60-65%. Mild diastolic dysfunction is present (impaired relaxation pattern). Right Ventricle The right ventricle is normal size. The right ventricular systolic function is normal. Atria Left atrium is mildly dilated. Right atrium is mildly dilated. Aortic Valve Aortic valve is trileaflet. Trace aortic regurgitation. There is no aortic valvular stenosis. Mitral Valve Moderate mitral annular calcification. Mild to moderate mitral regurgitation. No evidence of mitral valve stenosis. Tricuspid Valve The tricuspid valve is normal in structure. Mild tricuspid regurgitation. Estimated PAP is 45mmHg. Pulmonic Valve The pulmonary valve is normal in structure. Moderate pulmonic regurgitation. Great Vessels The aortic root is normal in size. The ascending aorta is normal in [facility] [address] [address] 2 D/M-MODE ECHOCARDIOGRAM Name: LUIS CELESTE Room #: 240-P [facility] IN .R.#: [id number] Admission: 05/17/19 Attend Phys: Adrian Bryan, Discharge: Date of : 32 Date of Service: 05/18/19 0841 Report #: [id number] size. IVC is normal in size and collapses >50% with inspiration. Pericardium Trivial anterior pericardial fluid. <Conclusion> Left ventricular systolic function is normal. There is normal LV segmental wall motion. LVEF is 60-65%. Mild diastolic dysfunction Both atria are mildly dilated. Aortic valve is trileaflet. Trace aortic regurgitation, no stenosis. Moderate mitral annular calcification. Mild to moderate mitral regurgitation. Mild tricuspid regurgitation. Estimated pulmonary artery pressure of 45mmHg. Trivial anterior pericardial fluid. <ELECTRONICALLY SIGNED> By: Lg Haines MD, [facility] 05/18/19840 0 0 Lg Haines MD, FAC /INF
[2019-05-18 12:06] LABS: ANA INTERPRETATION Negative (Negative)
[2019-05-18 13:07] LABS: CERULOPLASMIN 21.1 mg/dL (19.0-39.0)
[2019-05-19] VITALS (36 sets, daily range): BP systolic 77–129; BP diastolic 38–62
--- NOTE | 2019-05-19 01:03 | HC ---
[facility] [place] [address] CONSULTATION Name: LUIS CELESTE Room #: 240-P [facility] IN M.R.#: [id number] Admission: 05/17/19 Attend Phys: Adrian Bryan MD Discharge: Date of : 32 Report #: [id number] THIS REPORT FOR: //name// CC: Adrian Herbert DATE OF SERVICE: 05/17/2019 INFECTIOUS DISEASE CONSULTATION. REASON FOR CONSULTATION: I was asked to evaluate concerning pneumonia and sepsis. HISTORY OF PRESENT ILLNESS: The patient is an 88-year-old who was recently hospitalized on 05/02/2019 with Pseudomonas and VRE urinary tract infection. At that time, she was admitted through the Emergency Room from care home with generalized weakness and decline in mental status. She was treated with ciprofloxacin and Zyvox. Later discharged only to return now with shortness of breath and O2 saturations dropped into the 60s. The patient was unable to give any history. She was in the Intensive Care Unit on a BiPAP mask. She would arouse, but not able to verbalize. She has had minimal sputum production. No nausea or vomiting. She has had no evidence of melena or hematochezia. Her initial white count was normal. Respiratory status has worsened over the ensuing 8 hours and now is in the intensive care unit. PAST MEDICAL HISTORY: Hip fracture with repair, hypertension, COPD, chronic kidney disease, urinary tract infection and anemia. FAMILY HISTORY: Noncontributory. SOCIAL HISTORY: She is , had previously lived in a single family home. Nonsmoker. No significant alcohol intake. ALLERGIES: SULFA. MEDICATIONS: As noted on her MAR, which were reviewed. REVIEW OF SYSTEMS: The patient was unable to give any further details. PHYSICAL EXAMINATION: VITAL SIGNS: She was afebrile, pulse 69, blood pressure 107/38. She is on 50% BiPAP mask. GENERAL: She was frail, thin. No rash or decubitus. No palpable adenopathy. HEENT: Eyes without scleral icterus. Unable to evaluate mouth due to her BiPAP mask on. NECK: Supple. [facility] [address] [place] [address] CONSULTATION Name: ROULALUIS Room #: 240-P [facility] IN M.R.#: [id number] Admission: 05/17/19 Attend Phys: Adrian Bryan MD Discharge: Date of : 32 Report #: [id number] LUNGS: Coarse breath sounds bilaterally with consolidation heard in posterior right chest. HEART: Regular, without murmur. ABDOMEN: Soft and nontender with no hepatosplenomegaly or mass appreciated. EXTREMITIES: No significant clubbing or cyanosis. She did have 2+ edema to her lower extremities. Able to move all extremities. NEUROLOGIC: Mood was sedate. LABORATORY STUDIES: Hemoglobin 7.2, WBC 6.1, platelet count 97,000. Sedimentation rate 53. ABG on 50% FiO2 BiPAP mask, pO2 66, pCO2 of 38, pH 7.36, lactate 1.5, bicarbonate 21. Sodium 142, potassium 3.9, bicarbonate 19, creatinine 1.5, bilirubin 0.5, ALT 468, AST 280, bilirubin 0.5, alkaline phosphatase 87, albumin is 2.2. BNP 448. Urinalysis, moderate wbc's, few bacteria, few yeast. Blood cultures are negative to date. Chest x-ray with worsening diffuse bilateral pulmonary infiltrates consistent with multifocal pneumonia. IMPRESSION: An 88-year-old with respiratory failure, suspect aspiration pneumonia in the setting of chronic obstructive pulmonary disease, chronic anemia with now thrombocytopenia. Suspecting DIC. Also, has hepatitis, likely sepsis versus hypotension, less likely drug. She has had a recent UTI. Overall, serious condition given her age and comorbidities. RECOMMENDATION: We will continue coverage for healthcare-associated pneumonia. Screen for MRSA. Continue ICU support. Serial laboratory studies including chest x-ray, CBC and chemistry. <ELECTRONICALLY SIGNED> By: Gunner Obrien MD 05/19/19 0103 2101 0047 Gunner Obrien MD /nt
[2019-05-19 05:15] LABS: ALBUMIN 1.7 g/dL (3.4-5.0); ANION GAP 11 mmol/L (7-16); BUN 23 mg/dL (7-18); CHLORIDE 116 mmol/L (98-107); CO2 19 mmol/L (21-32); CREATININE 1.3 mg/dL (0.6-1.0); GLUCOSE 228 mg/dL (74-106); POTASSIUM 4.5 mmol/L (3.5-5.1); SGOT 184 U/L (15-37); SGPT 452 U/L (30-65); SODIUM 146 mmol/L (136-145); TOTAL BILIRUBIN 0.4 mg/dL (<0.1-1.0); TOTAL PROTEIN 4.9 g/dL (6.4-8.2)
[2019-05-19 05:31] LABS: BE(vivo) -9.8 mmol/L (-2 to +3); HCO3 18.3 mmol/L (22.0-26.0); PCO2 50.4 mmHg (35.0-45.0); PO2 69.6 mmHg (80.0-100.0); sO2 89.3 % (92.0-98.0)
[2019-05-19 05:32] LABS: pH 7.179 (7.360-7.450)
[2019-05-19 05:38] LABS: CALCIUM < 5.0 mg/dL (8.5-10.1)
[2019-05-19 06:00] LABS: HEMATOCRIT 24.6 % (37.0-47.0); HEMOGLOBIN 8.5 gm/dL (12.0-15.0); MCH 33.3 pg (26.0-34.0); MCHC 34.7 g/dL (28.0-37.0); MCV 96.2 fL (80.0-100.0); PLATELET COUNT 67 thou/uL (150-400); RBC 2.56 mil/uL (4.20-5.00); RDW 18.3 % (10.5-14.5); WBC 5.7 thou/uL (4.0-11.0)
[2019-05-19 06:30] LABS: ABSOLUTE NEUTROPHILS 5.3 thou/uL (1.4-8.2); METAMYELOCYTES 2 %; NUCLEATED RBCS 1 /100WBC
[2019-05-19 06:31] LABS: ANISOCYTOSIS 2+; PLATELET ESTIMATE DECREASED; POIKILOCYTOSIS 1+; POLYCHROMASIA 1+
[2019-05-19 10:27] LABS: COLOR PINK; TOTAL VOLUME 25 mL
[2019-05-19 10:28] LABS: CLARITY CLOUDY
[2019-05-19 10:37] LABS: BF NUCLEATED CELLS 986; BF RBC 2399
[2019-05-19 11:50] LABS: BF NEUTROPHILS 86
[2019-05-19 11:51] LABS: BF MACROPHAGE 10
[2019-05-19 15:38] LABS: HCO3 20.2 mmol/L (22.0-26.0); PCO2 42.7 mmHg (35.0-45.0); PO2 114.4 mmHg (80.0-100.0); pH 7.292 (7.360-7.450); sO2 97.7 % (92.0-98.0)
[2019-05-20] VITALS (58 sets, daily range): BP systolic 73–141; BP diastolic 31–63
[2019-05-20 05:30] LABS: HEMOGLOBIN 8.8 gm/dL (12.0-15.0)
[2019-05-20 05:32] LABS: HEMATOCRIT 24.6 % (37.0-47.0); MCH 33.9 pg (26.0-34.0); MCHC 35.6 g/dL (28.0-37.0); MCV 95.2 fL (80.0-100.0); RBC 2.58 mil/uL (4.20-5.00); RDW 18.6 % (10.5-14.5); WBC 4.3 thou/uL (4.0-11.0)
[2019-05-20 05:33] LABS: PLATELET COUNT 40 thou/uL (150-400)
[2019-05-20 05:38] LABS: ALBUMIN 1.6 g/dL (3.4-5.0); CREATININE 1.4 mg/dL (0.6-1.0); POTASSIUM 3.2 mmol/L (3.5-5.1); TOTAL BILIRUBIN 0.3 mg/dL (<0.1-1.0); TOTAL PROTEIN 4.8 g/dL (6.4-8.2)
[2019-05-20 05:42] LABS: CALCIUM 7.4 mg/dL (8.5-10.1)
[2019-05-20 06:06] LABS: ABSOLUTE NEUTROPHILS 3.9 thou/uL (1.4-8.2); METAMYELOCYTES 1 %
[2019-05-20 06:07] LABS: ANISOCYTOSIS 2+; BURR CELLS 2+; PLATELET ESTIMATE DECREASED; POLYCHROMASIA 1+; TOXIC GRANULATION 1+
[2019-05-20 07:13] LABS: BE(vivo) -4.3 mmol/L (-2 to +3); HCO3 20.5 mmol/L (22.0-26.0); PCO2 36.5 mmHg (35.0-45.0); PO2 105.4 mmHg (80.0-100.0); pH 7.367 (7.360-7.450); sO2 97.7 % (92.0-98.0)
--- NOTE | 2019-05-20 15:41 | HC ---
[facility] [place] [address] CONSULTATION Name: LUIS CELESTE Room #: 240-P ADM IN M.R.#: [id number] Admission: 05/17/19 Attend Phys: Adrian Bryan MD Discharge: Date of : 32 Report #: [id number] THIS REPORT FOR: //name// CC: Adrian Herbert ENDOCRINE CONSULTATION The patient of Dr. Abreu, [facility], ICU room 240. SUBJECTIVE: An 88-year-old female admitted for a variety of medical problems as listed on prior notes. During the evaluation, the patient was found to have an elevated TSH of 35 and a suppressed free T4 of 0.2. There is no information regarding prior thyroid status, and the patient is unable to give any clinical information. There are no relatives available for any additional information. It is not known whether the patient was chronically on a thyroid replacement or this is a new discovery. Otherwise, I am unable to elucidate any pertinent endocrine history that is valuable for diagnosis or treatment. OBJECTIVE: LABORATORY DATA: As above. PHYSICAL EXAMINATION: Frail 88-year-old female who is intubated and restrained. She is sedated and physical examination is not effective in evaluating thyroid status. The patient appears to be clinically euthyroid, although exam is extremely limited. ASSESSMENT: Hypothyroidism. Further details are not known at this time. PLAN: The patient has already received her first 2 doses of intravenous L-thyroxine 50 mcg, both yesterday and today. The intravenous route is significantly more potent than the oral route. The full replenishment dosage for someone who is myxedematous, which this patient is not, would be 400-500 mcg 1-time dose. This patient has already received 100 mcg and will continue with tomorrow's dosage before rechecking thyroid function studies to ensure that once replenishment of protein bound stores as well as free L-thyroxine is completed, the patient is not rendered hyperthoraxinemic by continued administration of the current daily dose by the intravenous route. Thank you very much for this consultation. I will continue to follow the patient with you for evaluation and treatment of thyroid disease. <ELECTRONICALLY SIGNED> By: Dat Jarvis MD 05/20/19 1541 1323 [id number] Dat Jarvis MD /nt
[2019-05-21] VITALS (70 sets, daily range): BP systolic 77–135; BP diastolic 31–61
[2019-05-21 08:17] LABS: BE(vivo) -2.9 mmol/L (-2 to +3); HCO3 23.2 mmol/L (22.0-26.0); PCO2 46.4 mmHg (35.0-45.0); sO2 86.4 % (92.0-98.0)
[2019-05-21 08:19] LABS: pH 7.317 (7.360-7.450)
[2019-05-21 08:20] LABS: PO2 55.8 mmHg (80.0-100.0)
[2019-05-21 11:06] LABS: HEMATOCRIT 24.6 % (37.0-47.0); HEMOGLOBIN 8.7 gm/dL (12.0-15.0); MCHC 35.4 g/dL (28.0-37.0); WBC 5.5 thou/uL (4.0-11.0)
[2019-05-21 11:08] LABS: MCH 33.7 pg (26.0-34.0); MCV 95.2 fL (80.0-100.0); RBC 2.58 mil/uL (4.20-5.00); RDW 18.7 % (10.5-14.5)
[2019-05-21 11:27] LABS: ALBUMIN 1.7 g/dL (3.4-5.0); CALCIUM 7.2 mg/dL (8.5-10.1); CREATININE 1.5 mg/dL (0.6-1.0); TOTAL BILIRUBIN 0.4 mg/dL (<0.1-1.0); TOTAL PROTEIN 4.6 g/dL (6.4-8.2)
[2019-05-21 12:26] LABS: ABSOLUTE NEUTROPHILS 5.2 thou/uL (1.4-8.2); ANISOCYTOSIS 2+; METAMYELOCYTES 1 %
[2019-05-21 12:28] LABS: SCHISTOCYTES OCCASIONAL
[2019-05-21 12:34] LABS: PLATELET COUNT 14 thou/uL (150-400)
[2019-05-22] VITALS (38 sets, daily range): BP systolic 64–120; BP diastolic 27–54
[2019-05-22 05:08] LABS: BE(vivo) 4.1 mmol/L (-2 to +3); HCO3 28.9 mmol/L (22.0-26.0); PCO2 44.7 mmHg (35.0-45.0); pH 7.429 (7.360-7.450)
[2019-05-22 05:53] LABS: HEMATOCRIT 23.2 % (37.0-47.0); HEMOGLOBIN 8.2 gm/dL (12.0-15.0); MCH 33.1 pg (26.0-34.0); MCHC 35.1 g/dL (28.0-37.0); MCV 94.3 fL (80.0-100.0); PLATELET COUNT 59 thou/uL (150-400); RBC 2.46 mil/uL (4.20-5.00); RDW 18.6 % (10.5-14.5); WBC 5.2 thou/uL (4.0-11.0)
[2019-05-22 06:10] LABS: ALBUMIN 1.8 g/dL (3.4-5.0); CALCIUM 7.1 mg/dL (8.5-10.1); CREATININE 1.7 mg/dL (0.6-1.0); POTASSIUM 3.3 mmol/L (3.5-5.1); TOTAL BILIRUBIN 0.6 mg/dL (<0.1-1.0); TOTAL PROTEIN 4.7 g/dL (6.4-8.2)
[2019-05-22 08:23] LABS: ABSOLUTE NEUTROPHILS 4.6 thou/uL (1.4-8.2); ANISOCYTOSIS 2+; METAMYELOCYTES 3 %
[2019-05-22 08:24] LABS: SCHISTOCYTES OCCASIONAL
[2019-05-23] VITALS (35 sets, daily range): BP systolic 82–146; BP diastolic 30–64
[2019-05-23 05:32] LABS: HEMOGLOBIN 7.8 gm/dL (12.0-15.0)
[2019-05-23 05:33] LABS: MCH 33.3 pg (26.0-34.0); MCHC 35.2 g/dL (28.0-37.0); MCV 94.5 fL (80.0-100.0); RBC 2.33 mil/uL (4.20-5.00); RDW 18.4 % (10.5-14.5)
[2019-05-23 05:35] LABS: CREATININE 2.1 mg/dL (0.6-1.0); POTASSIUM 3.7 mmol/L (3.5-5.1)
[2019-05-23 14:38] LABS: HEMATOCRIT 20.4 % (37.0-47.0); HEMOGLOBIN 7.1 gm/dL (12.0-15.0); MCH 32.7 pg (26.0-34.0); MCHC 34.8 g/dL (28.0-37.0); MCV 93.9 fL (80.0-100.0); RBC 2.17 mil/uL (4.20-5.00); RDW 17.8 % (10.5-14.5); WBC 4.7 thou/uL (4.0-11.0)
[2019-05-23 14:40] LABS: PLATELET COUNT 98 thou/uL (150-400)
[2019-05-23 15:20] LABS: ABSOLUTE NEUTROPHILS 3.9 thou/uL (1.4-8.2); METAMYELOCYTES 1 %; PLATELET ESTIMATE DECREASED
[2019-05-23 15:21] LABS: HYPOCHROMASIA SLIGHT
[2019-05-24] VITALS (15 sets, daily range): BP systolic 35–123; BP diastolic 15–47
[2019-05-24 05:57] LABS: HEMATOCRIT 21.1 % (37.0-47.0); HEMOGLOBIN 7.5 gm/dL (12.0-15.0); MCH 33.5 pg (26.0-34.0); MCHC 35.6 g/dL (28.0-37.0); MCV 94.2 fL (80.0-100.0); RBC 2.24 mil/uL (4.20-5.00); RDW 17.6 % (10.5-14.5); WBC 5.4 thou/uL (4.0-11.0)
[2019-05-24 06:18] LABS: ALBUMIN 1.6 g/dL (3.4-5.0); CALCIUM 6.8 mg/dL (8.5-10.1); CREATININE 2.2 mg/dL (0.6-1.0); POTASSIUM 3.9 mmol/L (3.5-5.1); TOTAL BILIRUBIN 0.5 mg/dL (<0.1-1.0); TOTAL PROTEIN 4.5 g/dL (6.4-8.2)
== END 2019-05-24 15:14 | DRG 870 ==
LOC: ER 22:03 → ICU 05-17 00:40 → 3W 05-17 00:40 → EROBS 05-17 00:40 → 3W 05-17 01:15 → ICU 05-17 11:55
PROVIDERS: Emergency Medicine; Internal Medicine; Internal Medicine Pulmonary Disease; Nurse Practitioner; Nurse Practitioner Acute Care; Pediatrics; ADMIT Family Medicine
PROC: 5A09357 Assistance with Respiratory Ventilation, Less than 24 Consecutive Hours, Continuous Positive Airway Pressure (ICD-10-PCS; principal; 2019-05-17)
PROC: 30233N1 Transfusion of Nonautologous Red Blood Cells into Peripheral Vein, Percutaneous Approach (ICD-10-PCS; principal; 2019-05-17)
PROC: 5A09357 Assistance with Respiratory Ventilation, Less than 24 Consecutive Hours, Continuous Positive Airway Pressure (ICD-10-PCS; 2019-05-18)
PROC: 02HV33Z Insertion of Infusion Device into Superior Vena Cava, Percutaneous Approach (ICD-10-PCS; 2019-05-19)
PROC: 5A1955Z Respiratory Ventilation, Greater than 96 Consecutive Hours (ICD-10-PCS; 2019-05-19)
PROC: 5A09357 Assistance with Respiratory Ventilation, Less than 24 Consecutive Hours, Continuous Positive Airway Pressure (ICD-10-PCS; 2019-05-19)
PROC: 0BH17EZ Insertion of Endotracheal Airway into Trachea, Via Natural or Artificial Opening (ICD-10-PCS; 2019-05-19)
PROC: 30233R1 Transfusion of Nonautologous Platelets into Peripheral Vein, Percutaneous Approach (ICD-10-PCS; 2019-05-21)
DX: A41.9 Sepsis, unspecified organism (principal); J69.0 Pneumonitis due to inhalation of food and vomit; E43 Unspecified severe protein-calorie malnutrition; J96.21 Acute and chronic respiratory failure with hypoxia; N17.9 Acute kidney failure, unspecified; N39.0 Urinary tract infection, site not specified; I50.32 Chronic diastolic (congestive) heart failure; E87.0 Hyperosmolality and hypernatremia; G93.40 Encephalopathy, unspecified; J44.1 Chronic obstructive pulmonary disease with (acute) exacerbation; I13.0 Hypertensive heart and chronic kidney disease with heart failure and stage 1 through stage 4 chronic kidney disease, or unspecified chronic kidney disease; Z66 Do not resuscitate; Z96.641 Presence of right artificial hip joint; R74.0 Nonspecific elevation of levels of transaminase and lactic acid dehydrogenase [LDH]; E03.9 Hypothyroidism, unspecified; I48.91 Unspecified atrial fibrillation; F03.90 Unspecified dementia, unspecified severity, without behavioral disturbance, psychotic disturbance, mood disturbance, and anxiety; N18.3 Chronic kidney disease, stage 3 (moderate); M62.84 Sarcopenia; E55.9 Vitamin D deficiency, unspecified; E11.22 Type 2 diabetes mellitus with diabetic chronic kidney disease; K75.9 Inflammatory liver disease, unspecified; I95.9 Hypotension, unspecified; E87.6 Hypokalemia; T50.905A Adverse effect of unspecified drugs, medicaments and biological substances, initial encounter; Z88.2 Allergy status to sulfonamides; Z89.421 Acquired absence of other right toe(s); Z68.22 Body mass index [BMI] 22.0-22.9, adult; Z79.899 Other long term (current) drug therapy; Z79.82 Long term (current) use of aspirin; Y92.89 Other specified places as the place of occurrence of the external cause; I27.20 Pulmonary hypertension, unspecified; I08.1 Rheumatic disorders of both mitral and tricuspid valves; D69.6 Thrombocytopenia, unspecified
CPT/HCPCS: 10078; 27000; 85076